=== PATIENT | male | born 1935 | race Caucasian/White ===

== ENCOUNTER 2016-11-04 07:52 | Day surgery (SDC) | payer MEDICARE ==
[2016-11-02 12:34] VITALS: BMI 25.7
[~2016-11-04 07:52] MED LIST: LACTATED RINGERS 1,000 ML IV SCH; LIDOCAINE 1% 20 ML VIAL (10MG/ML) FOR IV START INTRADERMA PRN
[2016-11-04 08:37] VITALS: RESP 16; TEMP 98
[2016-11-04] MEDS ORDERED: PROPOFOL 10 MG/ML 20 ML VIAL IV ONE (08:42)
[2016-11-04] MEDS ORDERED: LIDOCAINE 1% INJ 10MG/ML (20 ML MDV) ONE (08:42)
--- NOTE | 2016-11-04 09:05 | P.PCN ---
Date of Procedure: 11/04/16 Procedure(s) Performed: Brief history: Patient is a pleasant 81-year-old white male, scheduled for an elective upper endoscopy as well as colonoscopy as a part of evaluation of abdominal pain, intermittent nausea and vomiting and change in bowel habits. He also has prior history of colon polyps. Procedure performed: Esophagogastroduodenoscopy with biopsy Colonoscopy with biopsy Preoperative diagnosis: Abdominal pain, intermittent nausea and vomiting Change in bowel habits Anesthesia: MAC Procedure: After informed consent was obtained from the patient was brought into the endoscopy unit and IV sedation was administered by anesthesia under continuous monitoring. Initially upper endoscopy was done. The Olympus GF 160 video endoscope was inserted inserted into the mouth and esophagus intubated without any difficulty and was gradually advanced into the stomach and duodenum and carefully examined. The bulb and second part of the duodenum showed scattered erosions consistent with duodenitis and biopsies were done from this area. The scope was then withdrawn into the stomach adequately insufflated with air and upon careful examination the antrum appeared normal. The body, cardia and fundus had diffuse gastritis and biopsies were done from this area. The scope was then withdrawn into the esophagus. The GE junction was located at 40 cm to the incisors. small hiatal hernia noted. It appeared regular with with superficial erosions consistent with LA grade B reflux esophagitis.st of the esophagus appeared normal. Patient tolerated the procedure well. At this time the patient continued to remain sedation. Initial digital rectal examination was normal. Olympus CF 160 video colonoscope was then inserted into the rectum and gradually advanced to the cecum without any difficulty. Careful examination was performed as the scope was gradually being withdrawn. The prep was excellent. the cecum there was a polyp that was removed by biopsy. The Rest of thececum, ascending colon, transverse colon, descending colon, appeared normal. In the sigmoid colon there was a polyp that was removed biopsy and rectum there was a polyp that was removed by biopsy. The rest of the sigmoid colon and rectum appeared normal. also random biopsies were done from the ascending and descending colon to rule out microscopic/ collagenous colitis. Retroflexion was performed in the rectum and monitoring hemorrhoids noted. Patient tolerated the procedure well. Impression: 1.Upper endoscopy revealed duodenal erosions, diffuse gastritis and LA grade B reflux esophagitis. 2.Colonoscopy revealed 5 mm cecal polyp, 5 mm sigmoid polyp and a rectal polyp status post removal by biopsy. Recommendations: Findings of this examination were discussed with the patient as well as his family. He was advised to follow with the biopsy results. If the biopsy shows a tubular adenoma he can have a repeat colonoscopy in 5 years.
[2016-11-04 09:27] VITALS: BP 108/70; PULSE 54
== END 2016-11-04 10:05 | disposition home or self-care (01) ==
LOC: ORWHC2ENDO 07:52
PROVIDERS: ATTEND Internal Medicine Gastroenterology
DX: K21.9 Gastro-esophageal reflux disease without esophagitis (principal); K29.50 Unspecified chronic gastritis without bleeding; D12.0 Benign neoplasm of cecum; K62.1 Rectal polyp; K63.5 Polyp of colon; N42.9 Disorder of prostate, unspecified; N28.9 Disorder of kidney and ureter, unspecified; M06.9 Rheumatoid arthritis, unspecified; Z86.73 Personal history of transient ischemic attack (TIA), and cerebral infarction without residual deficits; Z79.899 Other long term (current) drug therapy; Z88.8 Allergy status to other drugs, medicaments and biological substances
CPT/HCPCS: 88305; 88342; 45380; 43239; J2001; J2704

== ENCOUNTER 2017-10-01 03:33 | Emergency (ER) | payer MEDICARE ==
[2017-10-01] MEDS ORDERED: RX INFO: IV CONTRAST WAS GIVEN 1 EACH MISC MISCELLANE PRN (04:16)
--- NOTE | 2017-10-01 04:21 | ED ---
Fall HPI - General Chief Complaint: Fall Stated Complaint: Abdominal Pain/Fall Time Seen by Provider: 10/01/17 03:52 Source: patient Mode of arrival: ambulatory - History of Present Illness Initial Comments: This patient is an 82-year-old man who presents to be evaluated after he had a fall. The patient states that around 11:30 PM he was returning to bed after having use the bathroom, and he lost his balance and fell forward landing on his anterior abdominal wall and his chest. He was having some pain states that he thought he would try to manage at home. He did take an ibuprofen but as the pain continued he decided to be seen here for evaluation. The patient did not have head trauma or any loss of consciousness. He is denying chest pain, dyspnea or cough. No vomiting or diarrhea. No change in urination. He indicates the pain is across the upper abdomen and epigastrium. He describes it as an aching pain, constant, moderate intensity. He has not had much relief with the ibuprofen. No associated symptoms. MD Complaint: fall Onset/Timin -: hour(s) Fall From: standing When Fall Occurred: 4-6 hours [employer] Fall Witnessed: yes, by family Place Fall Occurred: home Loss of Consciousness: none Prolonged Down Time?: no Symptoms Prior to Fall: none Severity: severe Quality: aching Associated Symptoms: abdominal pain - Related Data Home Medications Medication Instructions Recorded Confirmed Acetaminophen Tab [Tylenol Tab] 500 mg PO HS 01/29/15 10/01/17 Cholecalciferol [Vitamin D3] 400 unit PO DAILY 01/29/15 10/01/17 Glucosamine-Chondroitin Triple 1 tab PO DAILY 01/29/15 10/01/17 Strength Omeprazole [PriLOSEC] 20 mg PO AC-BRKFST 01/29/15 10/01/17 Silodosin [Rapaflo] 8 mg PO HS 01/29/15 10/01/17 Spironolactone [Aldactone] 25 mg PO DAILY 01/30/15 10/01/17 Furosemide [Lasix] 20 mg PO DAILY 09/30/15 10/01/17 Previous Rx's Medication Instructions Recorded Ondansetron Odt [Zofran ODT] 4 mg PO Q8HR PRN #10 tab 10/01/17 Allergies Allergy/AdvReac Type Severity Reaction Status Date / Time allopurinol Allergy RED RASH Verified 11/04/16 08:29 TO BLE Review of Systems ROS Statement: Those systems with pertinent positive or pertinent negative responses have been documented in the HPI. ROS Other: All systems not noted in ROS Statement are negative. Constitutional: Denies: fever, weakness Eyes: Denies: vision change Respiratory: Denies: cough, dyspnea Cardiovascular: Denies: chest pain, palpitations, edema, syncope Gastrointestinal: Reports: abdominal pain. 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, TINNITUS History of Any Multi-Drug Resistant Organisms: None Reported Past Surgical History: Cholecystectomy, Orthopedic Surgery Additional Past Surgical History / Comment(s): LTRI & CTR RT WRIST, ARTHROSCOPIC ROMA KNEES, RT TOE SURGERY, REMOVAL OF CANCER RT SIDE OF NOSE, EGD, COLONOSCOPY; PAIN PROCEDURES Past Anesthesia/Blood Transfusion Reactions: No Reported Reaction Past Psychological History: No Psychological Hx Reported Smoking Status: Never smoker - Past Family History Mother Family Medical History: CVA/TIA, Hyperlipidemia Additional Family Medical History / Comment(s): HEART PROBLEMS- FROM A STROKE General Exam Limitations: no limitations General appearance: alert, in no apparent distress Head exam: Present: atraumatic, normocephalic Eye exam: Present: normal appearance. Absent: scleral icterus, conjunctival injection Respiratory exam: Present: normal lung sounds bilaterally. Absent: respiratory distress, wheezes, rales, rhonchi, stridor, chest wall tenderness Cardiovascular Exam: Present: regular rate, normal rhythm, normal heart sounds. Absent: systolic murmur, diastolic murmur, rubs, gallop GI/Abdominal exam: Present: soft, tenderness. Absent: distended, guarding, rebound, rigid, organomegaly, mass, pulsatile mass Extremities exam: Present: normal inspection, normal capillary refill. Absent: pedal edema, calf tenderness Back exam: Present: normal inspection. Absent: CVA tenderness (R), CVA tenderness (L), vertebral tenderness Neurological exam: Present: alert Skin exam: Present: warm, dry, intact, normal color. Absent: rash Course Vital Signs 10/01/17 10/01/17 10/01/17 03:43 05:13 05:53 Temperature 98.0 F 97.9 F Pulse Rate 81 69 Respiratory 20 15 Rate Blood Pressure 149/67 137/71 O2 Sat by Pulse 99 97 Oximetry Medical Decision Making - Lab Data Result diagrams: 10/01/17 04:20 10/01/17 04:20 Lab Results 10/01/17 10/01/17 10/01/17 Range/Units 04:20 04:20 04:20 WBC 7.2 (3.8-10.6) k/uL RBC 4.23 L (4.30-5.90) m/uL Hgb 13.4 (13.0-17.5) gm/dL Hct 38.3 L (39.0-53.0) % MCV 90.4 (80.0-100.0) fL MCH 31.6 (25.0-35.0) pg MCHC 34.9 (31.0-37.0) g/dL RDW 12.1 (11.5-15.5) % Plt Count 170 (150-450) k/uL Neutrophils % 83 % Lymphocytes % 11 % Monocytes % 5 % Eosinophils % 0 % Basophils % 0 % Neutrophils # 6.0 (1.3-7.7) k/uL Lymphocytes # 0.8 L (1.0-4.8) k/uL Monocytes # 0.4 (0-1.0) k/uL Eosinophils # 0.0 (0-0.7) k/uL Basophils # 0.0 (0-0.2) k/uL Sodium 141 (137-145) mmol/L Potassium 3.9 (3.5-5.1) mmol/L Chloride 104 (98-107) mmol/L Carbon Dioxide 22 (22-30) mmol/L Anion Gap 15 mmol/L BUN 34 H (9-20) mg/dL Creatinine 2.00 H (0.66-1.25) mg/dL Est GFR (CKD-EPI)AfAm 35 (>60 ml/min/1.73 sqM) Est GFR (CKD-EPI)NonAf 30 (>60 ml/min/1.73 sqM) Glucose 108 H (74-99) mg/dL Calcium 10.3 H (8.4-10.2) mg/dL Total Bilirubin 0.6 (0.2-1.3) mg/dL AST 30 (17-59) U/L ALT 30 (21-72) U/L Alkaline Phosphatase 92 (38-126) U/L Troponin I (0.000-0.034) ng/mL Total Protein 7.6 (6.3-8.2) g/dL Albumin 4.6 (3.5-5.0) g/dL Amylase 91 (30-110) U/L Lipase 177 (23-300) U/L Urine Color Light Yellow Urine Appearance Clear (Clear) Urine pH 8.0 (5.0-8.0) Ur Specific [place] 1.012 (1.001-1.035) Urine Protein Negative (Negative) Urine Glucose (UA) Negative (Negative) Urine Ketones Negative (Negative) Urine Blood Negative (Negative) Urine Nitrite Negative (Negative) Urine Bilirubin Negative (Negative) Urine Urobilinogen <2.0 (<2.0) mg/dL Ur Leukocyte Esterase Negative (Negative) 10/01/17 Range/Units 04:20 WBC (3.8-10.6) k/uL RBC (4.30-5.90) m/uL Hgb (13.0-17.5) gm/dL Hct (39.0-53.0) % MCV (80.0-100.0) fL MCH (25.0-35.0) pg MCHC (31.0-37.0) g/dL RDW (11.5-15.5) % Plt Count (150-450) k/uL Neutrophils % % Lymphocytes % % Monocytes % % Eosinophils % % Basophils % % Neutrophils # (1.3-7.7) k/uL Lymphocytes # (1.0-4.8) k/uL Monocytes # (0-1.0) k/uL Eosinophils # (0-0.7) k/uL Basophils # (0-0.2) k/uL Sodium (137-145) mmol/L Potassium (3.5-5.1) mmol/L Chloride (98-107) mmol/L Carbon Dioxide (22-30) mmol/L Anion Gap mmol/L BUN (9-20) mg/dL Creatinine (0.66-1.25) mg/dL Est GFR (CKD-EPI)AfAm (>60 ml/min/1.73 sqM) Est GFR (CKD-EPI)NonAf (>60 ml/min/1.73 sqM) Glucose (74-99) mg/dL Calcium (8.4-10.2) mg/dL Total Bilirubin (0.2-1.3) mg/dL AST (17-59) U/L ALT (21-72) U/L Alkaline Phosphatase (38-126) U/L Troponin I <0.012 (0.000-0.034) ng/mL Total Protein (6.3-8.2) g/dL Albumin (3.5-5.0) g/dL Amylase (30-110) U/L Lipase (23-300) U/L Urine Color Urine Appearance (Clear) Urine pH (5.0-8.0) Ur Specific [place] (1.001-1.035) Urine Protein (Negative) Urine Glucose (UA) (Negative) Urine Ketones (Negative) Urine Blood (Negative) Urine Nitrite (Negative) Urine Bilirubin (Negative) Urine Urobilinogen (<2.0) mg/dL Ur Leukocyte Esterase (Negative) - EKG Data -: EKG Interpreted by De EKG shows normal: sinus rhythm, axis (Left axis deviation), intervals (IA interval 238 ms, consistent with a first-degree AV block. QRS duration 160 ms, consistent with left bundle branch block. QTC 502 ms, normal), QRS complexes ( Left bundle-branch block) Rate: normal (75 bpm) Disposition Clinical Impression: Fall Disposition: HOME SELF-CARE Condition: Good Instructions: Fall Prevention for Older Adults (ED) Prescriptions: Ondansetron Odt [Zofran ODT] 4 mg PO Q8HR PRN #10 tab PRN Reason: Nausea Referrals: Silke Calle MD [Primary Care Provider] - 1-2 days
[2017-10-01 04:30] LABS: Appearance,Urine Clear (Clear); Bilirubin,Urine Negative (Negative); Blood,Urine Negative (Negative); Color,Urine Light Yellow; Glucose,Urine (UA) Negative (Negative); Ketones,Urine Negative (Negative); Leukocyte Esterase,Urine Negative (Negative); Nitrite,Urine Negative (Negative); Protein,Urine Negative (Negative); Specific Gravity,Urine 1.012 (1.001-1.035); Urobilinogen,Urine <2.0 mg/dL (<2.0)
[2017-10-01 04:32] LABS: Basophils % (A) 0 %; Eosinophils % (A) 0 %; HCT 38.3 % (39.0-53.0); HGB 13.4 gm/dL (13.0-17.5); Lymphocytes # (A) 0.8 k/uL (1.0-4.8); Lymphocytes % (A) 11 %; MCH 31.6 pg (25.0-35.0); MCHC 34.9 g/dL (31.0-37.0); MCV 90.4 fL (80.0-100.0); Mean Platelet Volume 6.8; Monocytes # (A) 0.4 k/uL (0-1.0); Monocytes % (A) 5 %; Neutrophils % (A) 83 %; Platelet Count 170 k/uL (150-450); RBC 4.23 m/uL (4.30-5.90); RDW 12.1 % (11.5-15.5); WBC 7.2 k/uL (3.8-10.6)
[2017-10-01 04:47] LABS: Albumin 4.6 g/dL (3.5-5.0); Calcium 10.3 mg/dL (8.4-10.2); Potassium 3.9 mmol/L (3.5-5.1); Total Bilirubin 0.6 mg/dL (0.2-1.3); Total Protein 7.6 g/dL (6.3-8.2)
--- NOTE | 2017-10-01 04:53 | XR ---
EXAM: XR Abdomen 2 Views With XR Chest CLINICAL HISTORY: Pain TECHNIQUE: Frontal view of the chest, frontal view of the abdomen/pelvis and upright or decubitus view of the abdomen. COMPARISON: No relevant prior studies available. FINDINGS: Lungs: Unremarkable. No consolidation. Pleural space: Unremarkable. No pneumothorax. Heart: Unremarkable. No cardiomegaly. Mediastinum: Unremarkable. Intraperitoneal space: No free air. Gastrointestinal tract: Unremarkable. No dilation. Organs: Evidence of prior cholecystectomy. Calcifications within the pelvis likely phleboliths. Bones/joints: Degenerative changes of the thoracal lumbar spine. IMPRESSION: No acute findings.
[2017-10-01 05:15] VITALS: BP 137/71; PULSE 69; RESP 15
[2017-10-01] MEDS ORDERED: HYDROcodone/APAP 5-325MG 1 EACH TAB PO STA (05:37)
[2017-10-01 05:55] VITALS: TEMP 97.9
== END 2017-10-01 05:57 | disposition home or self-care (01) ==
LOC: EC 03:33
DX: R10.13 Epigastric pain (principal); K21.9 Gastro-esophageal reflux disease without esophagitis; M19.90 Unspecified osteoarthritis, unspecified site; N40.0 Benign prostatic hyperplasia without lower urinary tract symptoms; M06.9 Rheumatoid arthritis, unspecified; Z86.73 Personal history of transient ischemic attack (TIA), and cerebral infarction without residual deficits; Z85.820 Personal history of malignant melanoma of skin; Z79.899 Other long term (current) drug therapy; Z88.8 Allergy status to other drugs, medicaments and biological substances; W01.0XXA Fall on same level from slipping, tripping and stumbling without subsequent striking against object, initial encounter; Y92.009 Unspecified place in unspecified non-institutional (private) residence as the place of occurrence of the external cause
CPT/HCPCS: 36415; 74022; 80053; 81003; 82150; 83690; 84484; 85025; 93005; 99284

== ENCOUNTER 2017-10-05 19:54 | Inpatient (IN) | payer MEDICARE ==
[2017-10-05] MEDS ORDERED: SODIUM CHLORIDE 0.9% 1,000 ML IV STA (20:24)
[2017-10-05] MEDS ORDERED: SODIUM CHLORIDE 0.9% 500 ML IV STA (20:24)
--- NOTE | 2017-10-05 20:28 | ED ---
General Adult HPI - General Chief complaint: Fever Stated complaint: Fever Time Seen by Provider: 10/05/17 20:06 Source: patient, family, RN notes reviewed Mode of arrival: wheelchair Limitations: no limitations - History of Present Illness Initial comments: 82-year-old male presenting with fever and multiple falls. Patient is coming by his who gives the majority history. Over the past several days he has had fever up to 103. Patient is also had some intermittent confusion. He complains of runny nose, no sore throat, no cough. No chest pain. Patient has had some mild abdominal pain and nausea. Denies any diarrhea. Denies rash. Denies dysuria. Patient did fall and hit his head yesterday and has been complaining of a mild headache and neck pain since that time. According to his he has had multiple falls over the past week. No known sick contacts. Past medical history of hypertension and chronic kidney disease. Patient is given a dose of broad-spectrum antibiotics in the emergency department for concern of bacteremia. Blood culture and urine culture pending - Related Data Home Medications Medication Instructions Recorded Confirmed Glucosamine-Chondroitin Triple 1 tab PO DAILY 01/29/15 10/05/17 Strength Silodosin [Rapaflo] 8 mg PO HS 01/29/15 10/05/17 Spironolactone [Aldactone] 25 mg PO DAILY 01/30/15 10/05/17 Furosemide [Lasix] 20 mg PO DAILY 09/30/15 10/05/17 Calcium Lactate 84 mg PO DAILY 10/05/17 10/05/17 Donepezil [Aricept] 10 mg PO HS 10/05/17 10/05/17 Vitamin E 1,000 unit PO DAILY 10/05/17 10/05/17 amLODIPine [Norvasc] 10 mg PO DAILY 10/05/17 10/05/17 Previous Rx's Medication Instructions Recorded Ondansetron Odt [Zofran ODT] 4 mg PO Q8HR PRN #10 tab 10/01/17 Allergies Allergy/AdvReac Type Severity Reaction Status Date / Time allopurinol Allergy RED RASH Verified 10/05/17 20:39 TO BLE Review of Systems ROS Statement: Those systems with pertinent positive or pertinent negative responses have been documented in the HPI. ROS Other: All systems not noted in ROS Statement are negative. 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, TINNITUS History of Any Multi-Drug Resistant Organisms: None Reported Past Surgical History: Cholecystectomy, Orthopedic Surgery Additional Past Surgical History / Comment(s): LTRI & CTR RT WRIST, ARTHROSCOPIC ROMA KNEES, RT TOE SURGERY, REMOVAL OF CANCER RT SIDE OF NOSE, EGD, COLONOSCOPY; PAIN PROCEDURES Past Anesthesia/Blood Transfusion Reactions: No Reported Reaction Past Psychological History: No Psychological Hx Reported Smoking Status: Never smoker Past Alcohol Use History: None Reported Past Drug Use History: None Reported - Past Family History Mother Family Medical History: CVA/TIA, Hyperlipidemia Additional Family Medical History / Comment(s): HEART PROBLEMS- FROM A STROKE General Exam Limitations: no limitations General appearance: alert, in no apparent distress Head exam: Present: atraumatic, normocephalic Eye exam: Present: normal appearance, PERRL, EOMI ENT exam: Present: normal exam Neck exam: Present: normal inspection, tenderness. Absent: meningismus Respiratory exam: Present: normal lung sounds bilaterally. Absent: respiratory distress, wheezes Cardiovascular Exam: Present: regular rate, normal rhythm GI/Abdominal exam: Present: soft. Absent: distended, tenderness, guarding, rebound Extremities exam: Present: normal inspection, normal capillary refill. Absent: pedal edema Neurological exam: Present: alert, oriented X3, CN II-XII intact. Absent: motor sensory deficit Psychiatric exam: Present: normal affect, normal mood Skin exam: Present: warm, dry, intact. Absent: cyanosis, diaphoretic Course Vital Signs 10/05/17 10/05/17 10/05/17 19:58 20:14 21:02 Temperature 99.2 F Pulse Rate 74 79 64 Respiratory 18 18 18 Rate Blood Pressure 121/58 137/74 125/70 O2 Sat by Pulse 97 97 97 Oximetry 10/05/17 22:29 Temperature 97.8 F Pulse Rate 70 Respiratory 18 Rate Blood Pressure 139/77 O2 Sat by Pulse 97 Oximetry EKG Findings - EKG Comments: EKG Findings:: EKG shows sinus rhythm with first-degree AV block, left axis deviation, left bundle branch block, no ST segment elevation, EKG is unchanged compared to EKG from 5 days previous. Medical Decision Making - Medical Decision Making 82-year-old male presenting with fever, multiple falls, and some confusion. Head CT is obtained, is negative for intracranial hemorrhage or mass effect, no acute findings. Chest x-ray negative for focal pneumonia or pulmonary edema. Patient did have some hip pain status post fall, this was negative for fracture dislocation. Patient's temperature at home was measured at 103, he's been afebrile the emergency department. White blood cell count is 5.7, hemoglobin is 11.7 which is a reduction from 5 days previously at 13.4. Platelets 137 from 170. Creatinine 2.2 from 2.0. Patient is given IV hydration. Urinalysis negative for signs of infection, influenza is negative. AST and ALT are both mildly elevated, these will be repeated in the morning. Patient will be admitted for multiple falls, fever concern for occult infection, and confusion. - Lab Data Result diagrams: 10/05/17 20:26 10/05/17 20:26 Lab Results 10/05/17 10/05/17 10/05/17 Range/Units 20:26 20:26 20:26 WBC 5.7 (3.8-10.6) k/uL RBC 3.70 L (4.30-5.90) m/uL Hgb 11.7 L (13.0-17.5) gm/dL Hct 33.8 L (39.0-53.0) % MCV 91.4 (80.0-100.0) fL MCH 31.6 (25.0-35.0) pg MCHC 34.5 (31.0-37.0) g/dL RDW 12.2 (11.5-15.5) % Plt Count 137 L (150-450) k/uL Neutrophils % 67 % Lymphocytes % 14 % Monocytes % 14 % Eosinophils % 1 % Basophils % 0 % Neutrophils # 3.8 (1.3-7.7) k/uL Lymphocytes # 0.8 L (1.0-4.8) k/uL Monocytes # 0.8 (0-1.0) k/uL Eosinophils # 0.1 (0-0.7) k/uL Basophils # 0.0 (0-0.2) k/uL Sodium 139 (137-145) mmol/L Potassium 4.2 (3.5-5.1) mmol/L Chloride 103 (98-107) mmol/L Carbon Dioxide 22 (22-30) mmol/L Anion Gap 14 mmol/L BUN 35 H (9-20) mg/dL Creatinine 2.20 H (0.66-1.25) mg/dL Est GFR (CKD-EPI)AfAm 31 (>60 ml/min/1.73 sqM) Est GFR (CKD-EPI)NonAf 27 (>60 ml/min/1.73 sqM) Glucose 114 H (74-99) mg/dL Plasma Lactic Acid [place] (0.7-2.0) mmol/L Calcium 9.6 (8.4-10.2) mg/dL Total Bilirubin 0.5 (0.2-1.3) mg/dL AST 78 H (17-59) U/L ALT 75 H (21-72) U/L Alkaline Phosphatase 108 (38-126) U/L Troponin I (0.000-0.034) ng/mL Total Protein 6.7 (6.3-8.2) g/dL Albumin 3.8 (3.5-5.0) g/dL Urine Color Urine Appearance (Clear) Urine pH (5.0-8.0) Ur Specific [place] (1.001-1.035) Urine Protein (Negative) Urine Glucose (UA) (Negative) Urine Ketones (Negative) Urine Blood (Negative) Urine Nitrite (Negative) Urine Bilirubin (Negative) Urine Urobilinogen (<2.0) mg/dL Ur Leukocyte Esterase (Negative) Influenza Type A RNA Not Detected (Not Detectd) Influenza Type B (PCR) Not Detected (Not Detectd) 10/05/17 10/05/17 10/05/17 Range/Units 20:26 20:26 20:40 WBC (3.8-10.6) k/uL RBC (4.30-5.90) m/uL Hgb (13.0-17.5) gm/dL Hct (39.0-53.0) % MCV (80.0-100.0) fL MCH (25.0-35.0) pg MCHC (31.0-37.0) g/dL RDW (11.5-15.5) % Plt Count (150-450) k/uL Neutrophils % % Lymphocytes % % Monocytes % % Eosinophils % % Basophils % % Neutrophils # (1.3-7.7) k/uL Lymphocytes # (1.0-4.8) k/uL Monocytes # (0-1.0) k/uL Eosinophils # (0-0.7) k/uL Basophils # (0-0.2) k/uL Sodium (137-145) mmol/L Potassium (3.5-5.1) mmol/L Chloride (98-107) mmol/L Carbon Dioxide (22-30) mmol/L Anion Gap mmol/L BUN (9-20) mg/dL Creatinine (0.66-1.25) mg/dL Est GFR (CKD-EPI)AfAm (>60 ml/min/1.73 sqM) Est GFR (CKD-EPI)NonAf (>60 ml/min/1.73 sqM) Glucose (74-99) mg/dL Plasma Lactic Acid [place] 0.7 (0.7-2.0) mmol/L Calcium (8.4-10.2) mg/dL Total Bilirubin (0.2-1.3) mg/dL AST (17-59) U/L ALT (21-72) U/L Alkaline Phosphatase (38-126) U/L Troponin I 0.014 (0.000-0.034) ng/mL Total Protein (6.3-8.2) g/dL Albumin (3.5-5.0) g/dL Urine Color Yellow Urine Appearance Clear (Clear) Urine pH 5.5 (5.0-8.0) Ur Specific [place] 1.013 (1.001-1.035) Urine Protein Trace H (Negative) Urine Glucose (UA) Negative (Negative) Urine Ketones Negative (Negative) Urine Blood Negative (Negative) Urine Nitrite Negative (Negative) Urine Bilirubin Negative (Negative) Urine Urobilinogen <2.0 (<2.0) mg/dL Ur Leukocyte Esterase Negative (Negative) Influenza Type A RNA (Not Detectd) Influenza Type B (PCR) (Not Detectd) Disposition Clinical Impression: Fever, Multiple falls Disposition: ADMITTED IP TO THIS [facility] Condition: Stable Referrals: Silke Calle MD [Primary Care Provider] - 1-2 days Decision to Admit Reason: Admit from EC Decision Date: 10/05/17 Decision Time: 22:57
[2017-10-05 20:40] LABS: Basophils % (A) 0 %; Eosinophils # (A) 0.1 k/uL (0-0.7); Eosinophils % (A) 1 %; HCT 33.8 % (39.0-53.0); HGB 11.7 gm/dL (13.0-17.5); Lymphocytes # (A) 0.8 k/uL (1.0-4.8); Lymphocytes % (A) 14 %; MCH 31.6 pg (25.0-35.0); MCHC 34.5 g/dL (31.0-37.0); MCV 91.4 fL (80.0-100.0); Mean Platelet Volume 7.2; Monocytes # (A) 0.8 k/uL (0-1.0); Monocytes % (A) 14 %; Neutrophils # (A) 3.8 k/uL (1.3-7.7); Neutrophils % (A) 67 %; Platelet Count 137 k/uL (150-450); RDW 12.2 % (11.5-15.5); WBC 5.7 k/uL (3.8-10.6)
[2017-10-05 20:49] LABS: Appearance,Urine Clear (Clear); Bilirubin,Urine Negative (Negative); Blood,Urine Negative (Negative); Color,Urine Yellow; Glucose,Urine (UA) Negative (Negative); Ketones,Urine Negative (Negative); Leukocyte Esterase,Urine Negative (Negative); Nitrite,Urine Negative (Negative); PH, Urine 5.5 (5.0-8.0); Protein,Urine Trace (Negative); Specific Gravity,Urine 1.013 (1.001-1.035); Urobilinogen,Urine <2.0 mg/dL (<2.0)
[2017-10-05 20:50] LABS: Albumin 3.8 g/dL (3.5-5.0); Calcium 9.6 mg/dL (8.4-10.2); Potassium 4.2 mmol/L (3.5-5.1); Total Bilirubin 0.5 mg/dL (0.2-1.3); Total Protein 6.7 g/dL (6.3-8.2)
--- NOTE | 2017-10-05 21:54 | CT ---
EXAMINATION TYPE: CT brain lisa de leon DATE OF EXAM: 10/05/2017 COMPARISON: NONE HISTORY: Fever and falls. CT DLP: 1391.2 mGycm Automated exposure control for dose reduction was used. TECHNIQUE: CT scan of the head and cervical spine are performed without contrast. FINDINGS: There is no acute intracranial hemorrhage, mass effect, or midline shift identified. The ventricles and sulci are within normal limits in size. The globes are intact and the visualized sin uses are clear. Cervical spine is visualized in its entirety from C1 through upper thoracic levels and demonstrates s atisfactory alignment without evidence of acute fracture or dislocation. Prevertebral soft tissue ap pears within normal limits. The C1-C2 articulation is unremarkable. IMPRESSION: 1. There is no acute fracture or dislocation evident in the cervical spine. 2. No acute intracranial hemorrhage, mass effect, or midline shift is seen.
--- NOTE | 2017-10-05 21:57 | XR ---
EXAMINATION: XR chest 2V DATE AND TIME: 10/05/2017 9:42 PM ORDERING PROVIDER: Rolando Andrews MD CLINICAL INDICATION: fever TECHNIQUE: AP and lateral COMPARISON: 12/16/2012 DESCRIPTION: The lungs are clear. The pleural spaces are negative. The cardiac silhouette is not mildly enlarged with a left ventricular configuration, and there is tor tuosity and ectasia of the thoracic aorta. These changes appear to have been present on the prior joanne dy. The skeletal structures are intact without focal findings. The soft tissues are unremarkable. IMPRESSION: NO ACUTE PROCESS.
--- NOTE | 2017-10-05 21:59 | XR ---
PROCEDURE: XR Hip Complete LT, 2 views DATE AND TIME: 10/05/2017 9:50 PM REFERRING PHYSICIAN: Rolando Andrews MD CLINICAL INDICATION: PHH, Pain TECHNIQUE: Department protocol. COMPARISON: None FINDINGS: There is no fracture or malalignment. The soft tissues are unremarkable. IMPRESSION: NO ACUTE PROCESS.
[2017-10-05] MEDS ORDERED: cefTRIAXone IN SWFI 1,000 MG/10 ML SYRINGE IVP STA (22:51)
[2017-10-05] MEDS ORDERED: VANCOMYCIN IV PER PHARMACY 1 EACH MISC MISCELLANE PRN (22:51)
[2017-10-05] MEDS ORDERED: NALOXONE 0.4 MG/ML 1 ML VIAL IV PRN (22:58)
[2017-10-05] MEDS ORDERED: ONDANSETRON 4 MG/2 ML VIAL IVP PRN (22:58)
[2017-10-05] MEDS ORDERED: VANCOMYCIN 1,500 MG in SODIUM CHLORIDE 0.9% 250 ML IVPB SCH (23:15)
--- NOTE | 2017-10-05 23:37 | P.HPIM ---
History of Present Illness H&P Date: 10/05/17 Chief Complaint: Fevers 82-year-old male with history of TIA, CKD3. Patient presented to the ED accompanied by his family today due to reports of spiking fevers 102 Fahrenheit last time he received Tylenol was 5 PM since then no more spikes of fever there is no fevers recorded in the ED. Patient denies any headache neck stiffness, denies any runny nose denies any sneezing denies any coughing denies any upper respiratory infection symptoms, denies any chest pain or trouble breathing, denies any urinary changes denies any abdominal pain. She denies any GI bleeding. Family reports that he gets attacks of confusion recently he had an attack last night where he was getting ready to sleep in bed with his noticed that he started talking about firecrackers completely random and did not make any sense, the other time that he gets confused with few days ago when he did not make any sense while talking and he was seeming confused about his whereabouts. He is also been falling at home and the family is not sure whether it's due to [id number] dizziness or falling due to legs giving out. However the patient denies any changes in his speech denies any focal neurologic deficits any numbness tingling or weakness. Family reported the patient is compliant with his medications, there has been no changes in his medications except for Aricept that he started yesterday and took only one dose so far Review of Systems Constitutional: Patient reports fever, reports chills, denies night sweating, denies significant weight changes Eyes: Patient denies visual changes, denies eye pain ENT: Patient denies ear pain, denies rhinorrhea, denies sore throat Cardiovascular: Patient denies chest pain, denies exertional dyspnea, denies peripheral leg edema, denies orthopnea, denies paroxysmal nocturnal dyspnea Respiratory:Patient denies cough, denies wheezing, denies shortness of breath Gastrointestinal: Patient reports diarrhea 4 days ago, denies constipation, denies nausea, denies vomiting, denies abdominal pain Genitourinary: Patient denies dysuria, denies hematuria, denies changes in urinary habits, denies genital lesions Musculoskeletal: Patient denies muscle pain, denies joint pain Psychiatric: Patient denies changes in mood or memory, denies suicidal ideation, denies anxiety Endocrine: Patient denies heat intolerance, denies cold intolerance, denies excessive thirst, denies polyuria Neurological: Patient denies focal neurologic deficits, denies weakness, denies numbness, denies tingling, reports falling, reports short periods of confusion Hem/Lymphatic: Patient denies bleeding tendency, denies bruising, denies swollen lymph glands Allergic/Immun: Patient denies recent allergic reactions Skin: Patient denies rashes, denies pruritis, denies ulcers 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, TINNITUS History of Any Multi-Drug Resistant Organisms: None Reported Past Surgical History: Cholecystectomy, Orthopedic Surgery Additional Past Surgical History / Comment(s): LTRI & CTR RT WRIST, ARTHROSCOPIC ROMA KNEES, RT TOE SURGERY, REMOVAL OF CANCER RT SIDE OF NOSE, EGD, COLONOSCOPY; PAIN PROCEDURES Past Anesthesia/Blood Transfusion Reactions: No Reported Reaction Past Psychological History: No Psychological Hx Reported Smoking Status: Never smoker Past Alcohol Use History: None Reported Past Drug Use History: None Reported - Past Family History Mother Family Medical History: CVA/TIA, Hyperlipidemia Additional Family Medical History / Comment(s): HEART PROBLEMS- FROM A STROKE Medications and Allergies Home Medications and Allergies Comment(s): Reviewed Home Medications Medication Instructions Recorded Confirmed Type Glucosamine-Chondroitin Triple 1 tab PO DAILY 01/29/15 10/05/17 History Strength Silodosin [Rapaflo] 8 mg PO HS 01/29/15 10/05/17 History Spironolactone [Aldactone] 25 mg PO DAILY 01/30/15 10/05/17 History Furosemide [Lasix] 20 mg PO DAILY 09/30/15 10/05/17 History Ondansetron Odt [Zofran ODT] 4 mg PO Q8HR PRN #10 tab 10/01/17 10/05/17 Rx Calcium Lactate 84 mg PO DAILY 10/05/17 10/05/17 History Donepezil [Aricept] 10 mg PO HS 10/05/17 10/05/17 History Vitamin E 1,000 unit PO DAILY 10/05/17 10/05/17 History amLODIPine [Norvasc] 10 mg PO DAILY 10/05/17 10/05/17 History Allergies Allergy/AdvReac Type Severity Reaction Status Date / Time allopurinol Allergy RED RASH Verified 10/05/17 20:39 TO BLE Physical Exam Vitals: Vital Signs Temp Pulse Resp BP Pulse Ox 10/05/17 22:29 97.8 F 70 18 139/77 97 10/05/17 21:02 64 18 125/70 97 10/05/17 20:14 79 18 137/74 97 10/05/17 19:58 99.2 F 74 18 121/58 97 Intake and Output 10/05/17 10/05/17 10/06/17 14:59 22:59 06:59 Other: Weight 84.822 kg Constitutional: No acute distress, conversant, pleasant Eyes: Anicteric sclerae, moist conjunctiva, no lid-lag Pupils equal round reactive to light ENMT: NC/AT Oropharynx clear, no erythema, exudates Neck: Supple, FROM, no masses, or JVD No carotid bruits No thyromegaly Lungs: Clear to auscultation Clear to percussion Normal respiratory effort, no accessory muscle use Cardiovascular: Heart regular in rate and rhythm, No murmurs, gallops, or rubs No peripheral edema Abdominal: Soft Nontender, no guarding, rebound or rigidity Abdomen moving with respiration Normoactive bowel sounds No hepatomegaly, No splenomegaly No palpable mass No abdominal wall hernia noted Skin: Normal temperature, tone, texture, turgor No induration No subcutaneous nodules No rash, lesions No ulcers Extremities: No digital cyanosis No clubbing Pedal pulses intact and symmetrical Radial pulses intact and symmetrical No calf tenderness Psychiatric: Alert and oriented to person, place and time Appropriate affect fair judgment Neuro Muscles Strength 5/5 in all 4 extremities Sensation to light touch grossly present throughout Cranial nerves II-XII grossly intact No focal sensory deficits Cerebellar exam performed finger-nose intact heel lozada intact no dysdiadochokinesis No neck stiffness Lymphatics: no palpable cervical or supraclavicular , or inguinal lymph nodes Results CBC & Chem 7: 10/05/17 20:26 10/05/17 20:26 Labs: Abnormal Lab Results - Last 24 Hours (Table) 03/29/18 03/29/18 03/29/18 Range/Units 20:26 20:26 20:40 RBC 3.70 L (4.30-5.90) m/uL Hgb 11.7 L (13.0-17.5) gm/dL Hct 33.8 L (39.0-53.0) % Plt Count 137 L (150-450) k/uL Lymphocytes # 0.8 L (1.0-4.8) k/uL BUN 35 H (9-20) mg/dL Creatinine 2.20 H (0.66-1.25) mg/dL Glucose 114 H (74-99) mg/dL AST 78 H (17-59) U/L ALT 75 H (21-72) U/L Urine Protein Trace H (Negative) Assessment and Plan Assessment: 82-year-old male with history of TIA and CK D stage III presented to the emergency department due to spiking fevers at home, denies any symptoms suggestive of any focus of infection. Patient was also reported attacks of short lived. Periods's of confusion along with frequent falling recently. Patient admitted for further monitoring and workup will consist of ruling out any underlying infectious process, and ruling out any underlying stroke or TIA. Computed tomography scan of the head in the emergency department was unremarkable,, chest x-ray unremarkable, hip x-rays unremarkable. EKG showed left bundle branch block and first-degree AV block. Labs suggested slight worsening of his chronic kidney disease, slight worsening of his chronic anemia. Blood cultures were taken in the ED and patient received 1 dose of Rocephin and Vanco due to fevers Plan: #Possible TIA due to patient reporting attacks of confusion and falls Stroke pathway workup Computed tomography scan of the head was negative Check MRI of the brain Check carotid ultrasound Check 2-D echo of the heart Check lipid profile Check A1c Check TSH Consult neurology #Fevers No clear focus of infection No leukocytosis Blood cultures taken Urine analysis taken Patient received 1 dose of antibiotic empiric coverage in the ED I will hold antibiotics, and await clinical progress and follow-up cultures Chest x-ray negative #Anemia of chronic disease Slight drop in hemoglobin from baseline Patient denies any evidence of active bleeding or any melena Continue to monitor hemoglobin #CK D3 Avoid nephrotoxic medications Monitor renal function Monitor urine output Rapaflo dose was adjusted suggested down to 4 mg #. BPH Rapaflo dose should be adjusted down to 4 mg due to advanced Ckd DVT prophylaxis Heparin subcu 3 times a day Per our discussion with the ED doctor Johnie, the workup above will be performed in addition to ruling out TTP Aricept discontinued Diuretics on hold PT evaluation due to falls Preformed a thorough record review from recent ER visit reviewed labs and workup at that time which is showing slight drop in his hemoglobin and platelets along with slight worsening of his CK D Surrogate decision-maker: patient's CODE STATUS:Full code DVT prophylaxis: Heparin sc Discussed with: Patient, ER, family , RN Anticipated discharge: 48-[address]: home A total of 60 minutes were spent on the care of this complex patient more than 50% of the time was spent in counseling and care coordination.
[2017-10-06 00:09] LABS: Reticulocyte % 1.1 % (0.5-2.0)
[2017-10-06 01:11] VITALS: BMI 25.3
[2017-10-06] MEDS: ACETAMINOPHEN TAB 325 MG TAB PO PRN ×2 (02:50→14:45)
[2017-10-06 08:33] LABS: Basophils % (A) 0 %; Eosinophils # (A) 0.1 k/uL (0-0.7); Eosinophils % (A) 1 %; HCT 35.4 % (39.0-53.0); HGB 11.6 gm/dL (13.0-17.5); Lymphocytes # (A) 1.1 k/uL (1.0-4.8); Lymphocytes % (A) 18 %; MCH 30.8 pg (25.0-35.0); MCHC 32.8 g/dL (31.0-37.0); MCV 93.8 fL (80.0-100.0); Monocytes # (A) 0.8 k/uL (0-1.0); Monocytes % (A) 13 %; Neutrophils # (A) 3.9 k/uL (1.3-7.7); Neutrophils % (A) 63 %; Platelet Count 155 k/uL (150-450); RBC 3.77 m/uL (4.30-5.90); RDW 12.2 % (11.5-15.5); WBC 6.2 k/uL (3.8-10.6)
[2017-10-06 08:50] LABS: Albumin 3.7 g/dL (3.5-5.0); Calcium 9.2 mg/dL (8.4-10.2); Magnesium 1.9 mg/dL (1.6-2.3); Potassium 4.1 mmol/L (3.5-5.1); Total Bilirubin 0.4 mg/dL (0.2-1.3); Total Protein 6.5 g/dL (6.3-8.2)
[2017-10-06] MEDS: ASPIRIN 81 MG PO SCH (09:20)
[2017-10-06] MEDS: TAMSULOSIN 0.4 MG CAP.ER.24H PO SCH (09:20)
[2017-10-06] MEDS: amLODIPine 10 MG TAB PO SCH (09:20)
--- NOTE | 2017-10-06 12:21 | ECHOF ---
Referral Reason:TIA MEASUREMENTS -------- HEIGHT: 182.9 cm WEIGHT: 84.8 kg BP: 134/69 RVIDd: 3.4 cm (< 3.3) IVSd: 1.2 cm (0.6 - 1.1) LVIDd: 5.0 cm (3.9 - 5.3) LVPWd: 1.3 cm (0.6 - 1.1) IVSs: 2.0 cm LVIDs: 3.3 cm LVPWs: 1.8 cm LA Diam: 3.8 cm (2.7 - 3.8) LAESV Index (A-L): 27.78 ml/m Ao Diam: 3.8 cm (2.0 - 3.7) AV Cusp: 2.0 cm (1.5 - 2.6) MV EXCURSION: 11.800 mm (> 18.000) MV EF SLOPE: 90 mm/s (70 - 150) EPSS: 0.9 cm MV E Raymundo: 0.63 m/s MV DecT: 170 ms MV A Raymundo: 1.00 m/s MV E/A Ratio: 0.63 RAP: 5.00 mmHg RVSP: 25.10 mmHg FINDINGS -------- Sinus rhythm. This was a technically good study. The left ventricular size is normal. There is mild concentric left ventricular hypertrophy. Overa ll left ventricular systolic function is low-normal with, an EF between 50 - 55 %. Apical anterior LV wall motion is hypokinetic. Apical lateral LV wall motion is hypokinetic. The right ventricle is mildly enlarged. Normal LA size by volume 22+/-6 ml/m2. The right atrium is normal in size. Aortic valve is trileaflet and is mildly thickened. Mild mitral annular calcification present. No mitral regurgitation. Mild tricuspid regurgitation present. Right ventricular systolic pressure is normal at < 35 mmHg. There is no pulmonic regurgitation present. The aortic root is dilated measuring 3.8cm. Normal inferior vena cava with normal inspiratory collapse consistent with estimated right atrial pre ssure of 5 mmHg. There is no pericardial effusion. CONCLUSIONS -------- 1. Sinus rhythm. 2. This was a technically good study. 3. The left ventricular size is normal. 4. There is mild concentric left ventricular hypertrophy. 5. Overall left ventricular systolic function is low-normal with, an EF between 50 - 55 %. 6. Apical anterior LV wall motion is hypokinetic. 7. Apical lateral LV wall motion is hypokinetic. 8. The right ventricle is mildly enlarged. 9. Normal LA size by volume 22+/-6 ml/m2. 10. The right atrium is normal in size. 11. Aortic valve is trileaflet and is mildly thickened. 12. Mild mitral annular calcification present. 13. No mitral regurgitation. 14. Mild tricuspid regurgitation present. 15. Right ventricular systolic pressure is normal at < 35 mmHg. 16. There is no pulmonic regurgitation present. 17. The aortic root is dilated measuring 3.8cm. 18. Normal inferior vena cava with normal inspiratory collapse consistent with estimated right atrial pressure of 5 mmHg. 19. There is no pericardial effusion. [employer]ERANS ADVISER: Kaylin Urbano RDCS
--- NOTE | 2017-10-06 12:36 | P.CNNES ---
History of Present Illness Consult date: 10/06/17 Reason for Consult: Patient admitted with frequent falls and TIA. History of Present Illness: This patient is a 82-year-old right-handed white male who is seen today for evaluation of altered mental status and possible TIAs. History was obtained by his who is at bedside. Apparently on Monday he had a fall at home and struck the front of his chest due to the impact of the fall. She did bring him to the hospital on Monday and he was evaluated to rule out rib fracture. All of his testing came back negative and he was discharged home. Apparently the next day he was at home and was walking towards the bathroom when he had a syncopal episode and passed out and fell again. It is unclear if he had any loss of consciousness. His mentions that he complained of poor vision in his left eye and then went down. is able to attend to him and he did appear to be having some symptoms of confusion. He did not make sense with some of his speech at the time. According to the his primary care physician had recently started him on Aricept a few days prior at 10 mg daily. Apparently he underwent testing and was felt to have evidence suggesting possibility of cognitive impairment and early dementia. His Aricept was placed on hold. Apparently prior to coming to the hospital the patient was spiking fevers at home as high as 102.0. He was given some Tylenol but the fevers persisted and this was a reason to bring him to the hospital for further evaluation last night. The patient underwent some some blood cultures which are pending at this time. He was given a dose of Rocephin and vancomycin. He is afebrile this morning. When questioned about his memory loss the states it has been gradual and she was not clear why the Aricept was started just a few days ago as he has not shown any major decline recently. His testing for early dementia was also quite in the normal range according to the . 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 He is scheduled to undergo an MRI of the brain this afternoon and we will await these results. Due to the recent falls and confusion the question of possible TIAs is a possibility. According to the he does have yearly carotid Doppler studies done by his finance attorney and these have all been within normal limits. He has been reluctant to use NSAIDs or aspirin due to history of renal failure in the past. He was given 1 baby aspirin in the ER yesterday. The patient states he does not expanse any headache or neck pain. He did not have any signs of meningeal irritation in the ER last night and still has no features of meningitis. As noted his temperature is back to normal today. We' re still awaiting the results of his blood cultures. The patient is now admitted and neurology has been consulted for further evaluation and recommendations. Review of Systems Constitutional: Denies chills, Denies fever Eyes: denies blurred vision, denies pain Ears, nose, mouth and throat: Denies headache, Denies sore throat Cardiovascular: Denies chest pain, Denies shortness of breath Respiratory: Denies cough Gastrointestinal: Denies abdominal pain, Denies diarrhea, Denies nausea, Denies vomiting Musculoskeletal: Denies myalgias Integumentary: Denies pruritus, Denies rash Neurological: Reports change in mentation, Reports confusion, Reports gait dysfunction, Reports loss of vision, Reports motor disturbance, Reports paresthesias, Reports syncope, Denies numbness, Denies weakness Psychiatric: Denies anxiety, Denies depression Endocrine: Denies fatigue, Denies weight change 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, TINNITUS History of Any Multi-Drug Resistant Organisms: None Reported Past Surgical History: Cholecystectomy, Orthopedic Surgery Additional Past Surgical History / Comment(s): LTRI & CTR RT WRIST, ARTHROSCOPIC ROMA KNEES, RT TOE SURGERY, REMOVAL OF CANCER RT SIDE OF NOSE, EGD, COLONOSCOPY; PAIN PROCEDURES Past Anesthesia/Blood Transfusion Reactions: No Reported Reaction Past Psychological History: No Psychological Hx Reported Smoking Status: Never smoker Past Alcohol Use History: None Reported Past Drug Use History: None Reported - Past Family History Mother Family Medical History: CVA/TIA, Hyperlipidemia Additional Family Medical History / Comment(s): HEART PROBLEMS- FROM A STROKE Medications and Allergies Home Medications Medication Instructions Recorded Confirmed Type Glucosamine-Chondroitin Triple 1 tab PO DAILY 01/29/15 10/05/17 History Strength Silodosin [Rapaflo] 8 mg PO HS 01/29/15 10/05/17 History Spironolactone [Aldactone] 25 mg PO DAILY 01/30/15 10/05/17 History Furosemide [Lasix] 20 mg PO DAILY 09/30/15 10/05/17 History Ondansetron Odt [Zofran ODT] 4 mg PO Q8HR PRN #10 tab 10/01/17 10/05/17 Rx Calcium Lactate 84 mg PO DAILY 10/05/17 10/05/17 History Donepezil [Aricept] 10 mg PO HS 10/05/17 10/05/17 History Vitamin E 1,000 unit PO DAILY 10/05/17 10/05/17 History amLODIPine [Norvasc] 10 mg PO DAILY 10/05/17 10/05/17 History Allergies Allergy/AdvReac Type Severity Reaction Status Date / Time allopurinol Allergy RED RASH Verified 10/05/17 20:39 TO BLE Physical Examination - Vital Signs Vital Signs: Vital Signs Temp Pulse Pulse Resp BP BP Pulse Ox 10/06/17 07:00 98.9 F 71 16 116/57 96 10/06/17 03:48 98.6 F 10/06/17 02:51 100 F H 10/06/17 00:41 98.3 F 95 18 134/69 96 10/06/17 00:09 98.7 F 80 18 135/77 97 10/06/17 00:00 18 10/05/17 22:29 97.8 F 70 18 139/77 97 10/05/17 21:02 64 18 125/70 97 10/05/17 20:14 79 18 137/74 97 10/05/17 19:58 99.2 F 74 18 121/58 97 Intake and Output 10/05/17 10/06/17 10/06/17 22:59 06:59 14:59 Other: Voiding Method Toilet # Voids 3 Weight 84.822 kg 84.822 kg - Constitutional General appearance: average body habitus, cooperative - EENT EENT: PERRL, mucous membranes moist - Respiratory Respiratory: lungs clear, normal breath sounds - Cardiovascular Cardiovascular: regular rate, normal S1, normal S2 Extremities: no peripheral edema bilaterally - Gastrointestinal Gastrointestinal: normoactive bowel sounds - Integumentary Integumentary: normal - Neurologic Cranial nerve examination: PERRL, EOMI, VFF, V1/V2/V3 grossly intact, face symmetric, intact shoulder shrug, intact gag reflex, intact corneal reflex, normal palatal elevation Speech examination: intact Sensorimotor examination: intact Motor examination - right side: 4/5: biceps, triceps, wrist flexion, wrist extension, conveyor belt installer, hip flexors, knee extensors, dorsiflexion, toe extension (EHL) , plantarflexion Motor examination - left side: 4/5: biceps, triceps, wrist flexion, wrist extension, conveyor belt installer, hip flexors, knee extensors, dorsiflexion, toe extension (EHL) , plantarflexion Detailed sensory examination: intact Reflex and gait examination: intact Reflexes: 1+: ankle, bicep, knee, tricep - Musculoskeletal Musculoskeletal: no pain - Psychiatric Psychiatric: mood/affect appropriate, cooperative Results - Laboratory Findings CBC and BMP: 10/06/17 07:54 10/06/17 07:54 Abnormal Lab Findings: Abnormal Labs 10/05/17 10/05/17 10/05/17 20:26 20:26 20:40 RBC 3.70 L Hgb 11.7 L Hct 33.8 L Plt Count 137 L Lymphocytes # 0.8 L BUN 35 H Creatinine 2.20 H Glucose 114 H AST 78 H ALT 75 H Urine Protein Trace H 10/06/17 10/06/17 07:54 07:54 RBC 3.77 L Hgb 11.6 L Hct 35.4 L Plt Count Lymphocytes # BUN 30 H Creatinine 1.79 H Glucose AST 89 H ALT 92 H Urine Protein Assessment and Plan (1) TIA (transient ischemic attack) Current Visit: Yes Status: Acute Code(s): G45.9 - TRANSIENT CEREBRAL ISCHEMIC ATTACK, UNSPECIFIED SNOMED Code(s): 988746091 (2) Acute encephalopathy Current Visit: Yes Status: Acute Code(s): G93.40 - ENCEPHALOPATHY, UNSPECIFIED SNOMED Code(s): 79535550 (3) Sepsis Current Visit: Yes Status: Acute Code(s): A41.9 - SEPSIS, UNSPECIFIED ORGANISM SNOMED Code(s): 89342066 (4) Multiple falls Current Visit: Yes Status: Acute Code(s): R29.6 - REPEATED FALLS SNOMED Code(s): 375942982 Plan: This patient is a 82-year-old male who was admitted hospital after having recent falls and altered mental status at home. His who is a retired nurse noted that he was having difficulty with his gait and ambulation. He had a fall and Monday at which time she didn't bring him to the hospital as there was concern for rib fracture. All of his x-rays were negative and he was discharged home. The next day he had a fall in which she lost balance and fell down without any trauma to his head or neck area. He was also noted to be spiking fevers at home as high as 102. For these reasons he was brought back to the emergency room last night for further evaluation. Subsequent admitted to the hospital. Patient also has a history of possible early dementia. His primary care physician and recently started him on Aricept 10 mg daily. This has since been discontinued. Given his falls he did undergo a computed tomography scan of the brain which failed to reveal any acute changes. CT of the cervical spine was negative for acute fracture or dislocation. We have recommended an MRI of the brain for further evaluation. He has had yearly carotid Doppler studies done by his finance attorney and these have been negative for any significant carotid artery stenosis. We will check him for a complete laboratory evaluation for acute stroke. According to the his cholesterol has been in a very good range for years. His clinical history suggests possibility of TIA versus stroke. He does not appear to have clear evidence of moderate to severe dementia at this time. We will await the results of his MRI and we'll give further recommendations. Case was discussed at length with the patient as well as his and daughter bedside. All their questions were answered. They're aware of his guarded condition. Time with Patient: Greater than 30
--- NOTE | 2017-10-06 13:35 | P.PN ---
Subjective Progress Note Date: 10/06/17 Patient is awake and alert, conversive responding appropriately to questions. and daughter at bedside. Patient febrile intermittently. Otherwise no acute events. Objective - Vital Signs Vital signs: Vital Signs Temp 98.9 F 10/06/17 07:00 Pulse 71 10/06/17 07:00 Resp 16 10/06/17 07:00 BP 116/57 10/06/17 07:00 Pulse Ox 96 10/06/17 07:00 Intake & Output 10/05/17 10/06/17 10/06/17 18:59 06:59 18:59 Weight 84.822 kg Other: Voiding Method Toilet # Voids 3 - Exam Constitutional: No acute distress, conversant, pleasant Eyes: Anicteric sclerae, moist conjunctiva, no lid-lag, PERRLA ENMT: NC/AT,Oropharynx clear, no erythema, exudates Neck:Supple, FROM, no masses, or JVD, No carotid bruits; No thyromegaly Lungs: Clear to auscultation, Clear to percussion, Normal respiratory effort, no accessory muscle use Cardiovascular: Heart regular in rate and rhythm, No murmurs, gallops, or rubs no peripheral edema Abdominal: Soft Nontender, nom distended, no guarding, no rebound or rigidity, Normoactive bowel sounds No hepatomegaly, No splenomegaly, No palpable mass No abdominal wall hernia noted Skin: Normal temperature, tone, texture, turgor, No induration No subcutaneous nodules, No rash, lesions, No ulcers Extremities:No digital cyanosis No clubbing, Pedal pulses intact and symmetrical Radial pulses intact and symmetrical Normal gait and station, No calf tenderness Psychiatric: Alert and oriented to person, place and time, Appropriate affect Intact judgement Neuro: Muscles Strength 5/5 in all 4 extremities, Sensation to light touch grossly present throughout, Cranial nerves II-XII grossly intact. No focal sensory deficits - Labs CBC & Chem 7: 10/06/17 07:54 10/06/17 07:54 Labs: Abnormal Lab Results - Last 24 Hours (Table) 10/05/17 10/05/17 10/05/17 Range/Units 20:26 20:26 20:40 RBC 3.70 L (4.30-5.90) m/uL Hgb 11.7 L (13.0-17.5) gm/dL Hct 33.8 L (39.0-53.0) % Plt Count 137 L (150-450) k/uL Lymphocytes # 0.8 L (1.0-4.8) k/uL BUN 35 H (9-20) mg/dL Creatinine 2.20 H (0.66-1.25) mg/dL Glucose 114 H (74-99) mg/dL AST 78 H (17-59) U/L ALT 75 H (21-72) U/L Urine Protein Trace H (Negative) 10/06/17 10/06/17 Range/Units 07:54 07:54 RBC 3.77 L (4.30-5.90) m/uL Hgb 11.6 L (13.0-17.5) gm/dL Hct 35.4 L (39.0-53.0) % Plt Count (150-450) k/uL Lymphocytes # (1.0-4.8) k/uL BUN 30 H (9-20) mg/dL Creatinine 1.79 H (0.66-1.25) mg/dL Glucose (74-99) mg/dL AST 89 H (17-59) U/L ALT 92 H (21-72) U/L Urine Protein (Negative) Microbiology - Last 24 Hours (Table) 10/05/17 20:40 Urine Culture - Preliminary Urine,Voided Assessment and Plan (1) Acute encephalopathy Narrative/Plan: * Appreciate neurology recommendations patient scheduled to have MRI of the head * Secondary to possible infection versus confusion response to narcotics hydrocodone for pain versus TIA/stroke * Echocardiogram showing normal ejection fraction of 55-60% Current Visit: Yes Status: Resolved Code(s): G93.40 - ENCEPHALOPATHY, UNSPECIFIED SNOMED Code(s): 77306892 (2) Fever Narrative/Plan: * Continues to have intermittent fevers, influenza was negative * Has been complaining of intermittent abdominal pain will order CT abdomen and pelvis and consult ID Dr. Stephen for further recommendations * Blood cultures are pending, urinalysis and chest x-ray negative for any suggestion of infection * Patient is a history of gallbladder removal and sometimes gets recurrent gallstones Current Visit: Yes Status: Acute Code(s): R50.9 - FEVER, UNSPECIFIED SNOMED Code(s): 545691072 (3) Multiple falls Current Visit: Yes Status: Acute Code(s): R29.6 - REPEATED FALLS SNOMED Code(s): 993615048 (4) TIA (transient ischemic attack) Current Visit: Yes Status: Acute Code(s): G45.9 - TRANSIENT CEREBRAL ISCHEMIC ATTACK, UNSPECIFIED SNOMED Code(s): 203946622 (5) Syncope Narrative/Plan: * Possibly neurogenic * Check orthostatic vital signs, 2-D echocardiogram consistent with ejection fraction of 55-60% Current Visit: Yes Status: Acute Code(s): R55 - SYNCOPE AND COLLAPSE SNOMED Code(s): 433975748
--- NOTE | 2017-10-06 14:03 | P.CRDCN ---
History of Present Illness Consult date: 10/06/17 History of present illness: Mr. Aguillon is a pleasant 82-year-old male past medical history significant for gastroesophageal reflux disease, chronic kidney disease and hypertension. He sees Dr. Gaffney in the office. We have been asked to see him in consultation for evidence of left bundle branch block. Over the previous couple of days he has been feeling increasingly fatigued with generalized weakness. He had also been having some fevers at home. He denies symptoms of chest pain, shortness of breath, palpitations, nausea or vomiting. He does have episodes of dizziness intermittently and has fallen multiple times over the last week with symptoms of confusion as well. He states he fell prior to arrival after standing from the toilet and trying to walk back to bed. He felt weak and fell forward onto to upper body. He has been receiving antibiotics since admission. EKG reveals left bundle branch block with first-degree AV block evident and left axis deviation. Chest x-ray is negative for an acute cardiopulmonary process. Laboratory data reviewed, hemoglobin 11.6, platelets 155, potassium 4.1, magnesium 1.9, creatinine 1.79, cardiac enzymes negative 2, TSH 3.1. No evidence of urinary tract infection. Current cardiac medications include Lasix 20 mg daily, Aldactone 25 mg daily and amlodipine 10 mg daily. Most recent echocardiogram performed in the office reveals normal ejection fraction with mild MR. Review of Systems At the time of my exam: CONSTITUTIONAL: Denies fever. Denies chills. EYES: Denies blurred vision. Denies vision changes. Denies eye pain. EARS, NOSE, MOUTH & THROAT: Denies headache. Denies sore throat. Denies ear pain. CARDIOVASCULAR: Denies chest pain. Denies shortness of breath. Denies orthopnea. Denies PND. Denies palpitations. RESPIRATORY: Denies cough. GASTROINTESTINAL: Denies abdominal pain. Denies diarrhea. Denies constipation. Denies nausea. Denies vomiting. MUSCULOSKELETAL: Denies myalgias. INTEGUMENTARY: Denies pruitis. Denies rash. NEUROLOGIC: Denies numbness. Denies tingling. Complains of generalized weakness and fatigue. PSYCHIATRIC: Denies anxiety. Denies depression. ENDOCRINE: Denies fatigue. Denies weight change. Denies polydipsia. Denies polyurina. GENITOURINARY: Denies burning, hematuria or urgency with micturation. HEMATOLOGIC: Denies history of anemia. Denies bleeding. 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, TINNITUS History of Any Multi-Drug Resistant Organisms: None Reported Past Surgical History: Cholecystectomy, Orthopedic Surgery Additional Past Surgical History / Comment(s): LTRI & CTR RT WRIST, ARTHROSCOPIC ROMA KNEES, RT TOE SURGERY, REMOVAL OF CANCER RT SIDE OF NOSE, EGD, COLONOSCOPY; PAIN PROCEDURES Past Anesthesia/Blood Transfusion Reactions: No Reported Reaction Past Psychological History: No Psychological Hx Reported Smoking Status: Never smoker Past Alcohol Use History: None Reported Past Drug Use History: None Reported - Past Family History Mother Family Medical History: CVA/TIA, Hyperlipidemia Additional Family Medical History / Comment(s): HEART PROBLEMS- FROM A STROKE Medications and Allergies Home Medications Medication Instructions Recorded Confirmed Type Glucosamine-Chondroitin Triple 1 tab PO DAILY 01/29/15 10/05/17 History Strength Silodosin [Rapaflo] 8 mg PO HS 01/29/15 10/05/17 History Spironolactone [Aldactone] 25 mg PO DAILY 01/30/15 10/05/17 History Furosemide [Lasix] 20 mg PO DAILY 09/30/15 10/05/17 History Ondansetron Odt [Zofran ODT] 4 mg PO Q8HR PRN #10 tab 10/01/17 10/05/17 Rx Calcium Lactate 84 mg PO DAILY 10/05/17 10/05/17 History Donepezil [Aricept] 10 mg PO HS 10/05/17 10/05/17 History Vitamin E 1,000 unit PO DAILY 10/05/17 10/05/17 History amLODIPine [Norvasc] 10 mg PO DAILY 10/05/17 10/05/17 History Allergies Allergy/AdvReac Type Severity Reaction Status Date / Time allopurinol Allergy RED RASH Verified 10/05/17 20:39 TO BLE Physical Exam Vitals: Vital Signs Temp Pulse Pulse Resp BP BP Pulse Ox 10/06/17 07:00 98.9 F 71 16 116/57 96 10/06/17 03:48 98.6 F 10/06/17 02:51 100 F H 10/06/17 00:41 98.3 F 95 18 134/69 96 10/06/17 00:09 98.7 F 80 18 135/77 97 10/06/17 00:00 18 10/05/17 22:29 97.8 F 70 18 139/77 97 10/05/17 21:02 64 18 125/70 97 10/05/17 20:14 79 18 137/74 97 10/05/17 19:58 99.2 F 74 18 121/58 97 Intake and Output 10/05/17 10/06/17 10/06/17 22:59 06:59 14:59 Other: Voiding Method Toilet # Voids 3 Weight 84.822 kg 84.822 kg Blood pressure 116/57 heart rate 71 afebrile this morning, 100F overnight 3 AM. GENERAL: This is a 82-year-old male in no apparent distress at the time of my examination. HEENT: Head is atraumatic, normocephalic. Pupils are equal, round. Sclerae anicteric. Conjunctivae are clear. Mucous membranes of the mouth are moist. Neck is supple. There is no jugular venous distention. No carotid bruit is heard. LUNGS: Clear to auscultation no wheezes, rales or rhonchi. No chest wall tenderness is noted on palpation or with deep breathing. HEART: Regular rate and rhythm with systolic ejection murmur, no rubs or gallops. S1 and S2 heard. ABDOMEN: Soft, nontender. Bowel sounds are heard. No organomegaly noted. EXTREMITIES: No evidence of peripheral edema and no calf tenderness noted. VASCULAR: Radial and dorsalis pedis pulses palpated, no evidence of clubbing. NEUROLOGIC: Patient is awake, alert and oriented x3. Results 10/06/17 07:54 10/06/17 07:54 Cardiac Enzymes 10/05/17 10/05/17 10/06/17 Range/Units 20:26 20:26 07:54 AST 78 H 89 H (17-59) U/L Lactate Dehydrogenase 531 (313-618) U/L Troponin I 0.014 (0.000-0.034) ng/mL 10/06/17 Range/Units 08:17 AST (17-59) U/L Lactate Dehydrogenase (313-618) U/L Troponin I 0.031 (0.000-0.034) ng/mL Lipids 10/06/17 Range/Units 07:54 Triglycerides 70 (<150) mg/dL Cholesterol 134 (<200) mg/dL HDL Cholesterol 51 (40-60) mg/dL CBC 10/05/17 10/06/17 Range/Units 20:26 07:54 WBC 5.7 6.2 (3.8-10.6) k/uL RBC 3.70 L 3.77 L (4.30-5.90) m/uL Hgb 11.7 L 11.6 L (13.0-17.5) gm/dL Hct 33.8 L 35.4 L (39.0-53.0) % Plt Count 137 L 155 (150-450) k/uL Comprehensive Metabolic Panel 10/05/17 10/06/17 Range/Units 20:26 07:54 Sodium 139 140 (137-145) mmol/L Potassium 4.2 4.1 (3.5-5.1) mmol/L Chloride 103 104 (98-107) mmol/L Carbon Dioxide 22 23 (22-30) mmol/L BUN 35 H 30 H (9-20) mg/dL Creatinine 2.20 H 1.79 H (0.66-1.25) mg/dL Glucose 114 H 99 (74-99) mg/dL Calcium 9.6 9.2 (8.4-10.2) mg/dL AST 78 H 89 H (17-59) U/L ALT 75 H 92 H (21-72) U/L Alkaline Phosphatase 108 107 (38-126) U/L Total Protein 6.7 6.5 (6.3-8.2) g/dL Albumin 3.8 3.7 (3.5-5.0) g/dL Current Medications Generic Name Dose Route Start Last Admin Trade Name Freq PRN Reason Stop Dose Admin Acetaminophen 650 mg 10/05/17 22:58 10/06/17 02:50 Tylenol Tab PO 650 mg Q6HR PRN Administration Mild Pain or Fever > 100.5 Amlodipine Besylate 10 mg 10/06/17 09:00 10/06/17 09:20 Norvasc PO 10 mg DAILY DAVID Administration Aspirin 81 mg 10/06/17 09:00 10/06/17 09:20 Aspirin PO 81 mg DAILY DAVID Administration Atorvastatin Calcium 20 mg 10/06/17 21:00 Lipitor PO HS DAVID Calcium Carbonate/Glycine 500 mg 10/06/17 12:00 Tums PO DAILY@1200 DAVID Naloxone HCl 0.2 mg 10/05/17 22:58 Narcan IV Q2M PRN Opioid Reversal Ondansetron HCl 4 mg 10/05/17 22:58 Zofran IVP Q8HR PRN Nausea And Vomiting Tamsulosin HCl 0.4 mg 10/06/17 08:30 10/06/17 09:20 Flomax PO 0.4 mg [id number] DAVID Administration Intake and Output 10/05/17 10/06/17 10/06/17 22:59 06:59 14:59 Other: Voiding Method Toilet # Voids 3 Weight 84.822 kg 84.822 kg 10/06/17 07:54 10/06/17 07:54 Assessment and Plan Assessment: ASSESSMENT 1. Febrile illness of unknown etiology with confusion and dizziness. 2. Left bundle branch block, no acute intervention recommended. 3. Hypertension, controlled. 4. Chronic kidney disease, stage 3B PLAN Echocardiogram obtained will be reviewed. Continue ongoing medical management of febrile illness. No aggressive cardiac intervention required. Left bundle branch block may be normal variant secondary to advanced age. Thank you kindly for this consultation. Follow up with Dr. Gaffney in 2 weeks after discharge. Nurse Practitioner note has been reviewed, I agree with a documented findings and plan of care. Patient was seen and examined.
--- NOTE | 2017-10-06 14:28 | US ---
EXAMINATION TYPE: US carotid duplex BILAT DATE OF EXAM: 10/06/2017 COMPARISON: NO US CLINICAL HISTORY: tia. Patient stated had near syncopal episode x 2 EXAM MEASUREMENTS: RIGHT: Peak Systolic Velocity (PSV) cm/sec ----- Right CCA: 80.7 ----- Right ICA: 84.6 ----- Right ECA: 71.3 ICA/CCA ratio: 1.0 RIGHT: End Diastole cm/sec ----- Right CCA: 16.8 ----- Right ICA: 16.8 ----- Right ECA: 10.4 LEFT: Peak Systolic Velocity (PSV) cm/sec ----- Left CCA: 68.6 ----- Left ICA: 70.2 ----- Left ECA: 66.0 ICA/CCA ratio: 1.0 LEFT: End Diastole cm/sec ----- Left CCA: 18.4 ----- Left ICA: 23.0 ----- Left ECA: 5.2 VERTEBRALS (direction of flow): Right Vertebral: Antegrade Left Vertebral: Antegrade Rhythm: Arrhythmia Grayscale images show no significant focal plaque at carotid bulb level bilaterally. Velocity measure ments and ratios are within normal limits. Technologist notes arrhythmia during real-time scanning wh ich is reproduced on few of the waveform saved IMPRESSION: No hemodynamically significant stenosis is seen in either internal carotid artery. Possib le underlying arrhythmia, if this is not known finding further investigation with cardiac monitoring is advised.
[2017-10-06] MEDS: CALCIUM CARBONATE 500 MG CHEWABLE PO SCH (14:43)
--- NOTE | 2017-10-06 14:45 | CT ---
EXAMINATION TYPE: CT abdomen pelvis wo con DATE OF EXAM: 10/06/2017 HISTORY: Abdominal pain, stomach area, recent fall onto stomach CT DLP: 1026 mGycm. Automated Exposure Control for Dose Reduction was Utilized. TECHNIQUE: CT scan of the abdomen and pelvis is performed without oral or IV contrast. COMPARISON: CT abdomen pelvis December 16, 2012. FINDINGS: Within the limitations of a non-contrast study, the following observations are made. LUNG BASES: Posterior dependent linear atelectasis and/or scarring is present. LIVER/GB: Cholecystectomy clips are present. Central pneumobilia is noted on current study. PANCREAS: No significant abnormality is seen. SPLEEN: No significant abnormality is seen. ADRENALS: No significant abnormality is seen. KIDNEYS: There are large simple appearing cysts redemonstrated throughout both kidneys. Few scattered pelvic phleboliths are seen. BOWEL: There are some diverticula in the sigmoid colon. There is no CT evidence for acute diverticuli tis. There is no suspicious small or large bowel dilatation. Debris filled stomach suggest recent ying l ingestion. GENITAL ORGANS: Prostate gland is enlarged bulging on bladder base, underlying BPH is suspected. LYMPH NODES: No greater than 1cm abdominal or pelvic lymph nodes are appreciated. OSSEOUS STRUCTURES: There is grade 1 anterolisthesis of L3 on L4 and L4 on L5. There is mild height l oss or chronic compression fracture L3 level superior endplate. There is moderate to advanced disc sp luther narrowing with vacuum disc phenomenon L5-S1 level. There is slight underlying levoconvex scoliosi s in the lumbar spine. There is facet arthropathy lower lumbar levels. There is spinal canal stenosis L4-L5 level on axial image 51 and L3-L4 level on axial image 47 due to facet arthropathy and disc he rniation/spondylolisthesis. OTHER: There is mild calcified aftereffect change of aorta extending into branch vessels. IMPRESSION: 1. No suspicious posttraumatic finding identified on noncontrast study. 2. Pneumobilia seen on current study may be product of cholecystectomy, other etiologies are not excl uded. 3. Large but simple appearing renal cysts bilaterally are redemonstrated.
[2017-10-06] MEDS: cefTRIAXone IN SWFI 1,000 MG/10 ML SYRINGE IVP SCH (14:50)
--- NOTE | 2017-10-06 15:07 | MR ---
EXAMINATION TYPE: MR brain wo con DATE OF EXAM: 10/06/2017 COMPARISON: CT brain from yesterday. HISTORY: TIA per order. Admitted for fever and falls with headache yesterday. TECHNIQUE: Multiplanar, multisequence imaging of the brain and brainstem is performed without IV cont rast. FINDINGS: Diffusion weighted images demonstrate no evidence of a recent infarct or other diffusion abnormality. There is no worrisome extra-axial fluid collection. There is ventricular and sulcal prominence consis tent with diffuse cerebral atrophy. There are focal and confluent areas of T2 hyperintensity seen thr oughout the superficial, deep, and periventricular white matter. Lesions are nonspecific in appearanc e and distribution but most likely on basis of product of chronic small vessel ischemic change in pat ient this age. Midline structures demonstrate normal morphology. The craniocervical junction appears within normal limits. Normal vascular flow voids are present. Incidental dominant left vertebral artery noted. Ther e is mild mucosal thickening involving ethmoid sinuses bilaterally. Remainder paranasal sinuses are c lear. The globes are intact bilaterally. IMPRESSION: 1. No evidence of a recent infarct. 2. There is background of mild to moderate diffuse cerebral atrophy and moderate to advanced chronic small vessel ischemic change noted.
[2017-10-06] MEDS: ATORVASTATIN 20 MG TAB PO SCH (20:20)
--- NOTE | 2017-10-06 21:40 | CONS ---
CONSULTATION DATE OF SERVICE: 10/06/2017. REASON FOR CONSULTATION: Fever. HISTORY OF PRESENT ILLNESS: The patient is an 82-year-old male who has been brought into the ER at [facility] 10/05/2017 for fever with rigors and chills. His symptoms have been going on for about a few days prior to presentation to hospital and apparently did have 2 falls at home, but no loss of consciousness or any focal weakness. The patient still having fever with rigors and chills for which she took some Tylenol. Did not have significant improvement. The patient denies significant URI symptoms of sore throat. Denies having any chest pain. Very minimal cough, not bringing up any sputum. No shortness of breath. Has been complaining of some vague left lower abdominal pain that has been going on for the last few days and worse after the fall. Pain is mostly on the left side. For 3 days, more of a dull aching pain, 3-4 out of 10 and no radiation. [place] nauseated but no vomiting. Denies having any diarrhea or constipation associated with it. Since then the patient did have extensive workup including a chest x-ray that was reported to be negative. Head and cervical spine CT was negative as well. X-rays of the hip no fracture. The patient did receive 1 dose of Rocephin in the ER and did have a fever of 100 early this morning. Hence, I was asked to see the patient for further recommendation regarding antibiotic therapy. The patient did have influenza serology that was negative and UA has been negative. The patient denies having any burning or frequency of urine. Liver enzymes are mildly elevated. The patient did have a history of cholecystectomy. However, the did mention that he has risk of cholesterol stones and did have ERCP done by Dr. Walters. REVIEW OF SYSTEMS: Constitutional: Positive for weakness along with rigors and chills. Eyes no complaint. ENT no complaint. Respiratory as per HPI. Cardiovascular: No complaint. Genitourinary no complaint. Chest: As per HPI. Musculoskeletal: No complaint. Integument no complaint. Psychological no complaint. Endocrine no complaint. Neurological as per HPI. PAST MEDICAL HISTORY: Significant for CVA, TIA, gastroesophageal reflux disease, osteoarthritis, rheumatoid arthritis, benign prostatic hypertrophy, melanoma. PAST SURGICAL HISTORY: Cholecystectomy, arthroscopy bilateral knee, right toe surgery, melanoma resection of the right side of the nose, colonoscopy. SOCIAL HISTORY: No history of smoking, drinking, or drug use. FAMILY HISTORY: Mother with history of CVA and TIA. ALLERGIES: TO ALLOPURINOL. MEDICATIONS: The patient is currently on Tylenol, Norvasc, aspirin, Lipitor, Tums, Narcan, Zofran, Flomax. EXAMINATION: Blood pressure is 122/70 with a pulse of 72, temperature 98.7. T-max 100. He is 96% on room air. General description is an elderly male lying in bed in no distress. No tachypnea or accessory muscles of respiration use. HEENT: Shows slight pallor. No scleral icterus. Oral mucous membranes dry. No erythema or thrush. Neck: Trachea central. No thyromegaly. Lungs unlabored breathing. Clear to auscultation. No wheeze or crackles. Heart S1, S2. Regular rate and rhythm. No murmur. ABDOMEN: Soft. Very minimal tenderness on the left side, but no guarding. No rigidity. No organomegaly. EXTREMITIES: No edema of the feet. Skin examination: No rash or mass palpable. Neurological: Patient is awake, alert, oriented times three. Mood and affect normal. LABS: Hemoglobin 11.3, white count 6.2 with a BUN of 30, creatinine 1.79. Did have a creatinine 1.93 on 10/01/2017. The patient urine is negative. Serology is negative. Liver enzymes slightly elevated. Urine culture so far pending. Blood culture obtained currently pending. DIAGNOSTIC IMPRESSION AND PLAN: Patient in the hospital with multiple falls. The patient noted to have rigors and chills, source is likely abdominal. The patient did have some vague abdominal pain and did have elevated liver enzymes with question of possible ascending cholangitis to be the likely etiology. Clinically no other focus of infection. His urine has been negative. Chest x-ray was reported negative. The patient did have any respiratory symptoms. No evidence of any cellulitis or joint swelling. PLAN: 1. Await CT abdominal pelvis with oral contrast has been done by the admitting team. 2. Will start the patient on Rocephin 1 g IV piggyback daily. 3. Depending upon his clinical response as well as culture, we will adjust the medication further if needed. Thank you for this consultation. Will follow this patient along with you. MMODL / IJN: [id number] / MARTHA
[2017-10-07] MEDS: amLODIPine 10 MG TAB PO SCH (08:59)
[2017-10-07] MEDS: TAMSULOSIN 0.4 MG CAP.ER.24H PO SCH (08:59)
[2017-10-07] MEDS: ASPIRIN 81 MG PO SCH (08:59)
[2017-10-07] MEDS: cefTRIAXone IN SWFI 1,000 MG/10 ML SYRINGE IVP SCH (08:59)
--- NOTE | 2017-10-07 12:33 | P.PN ---
Subjective Progress Note Date: 10/07/17 Patient is awake and alert, conversive responding appropriately to questions. and daughter at bedside. Patient afebrile. Otherwise no acute events. Objective - Vital Signs Vital signs: Vital Signs Temp 98.7 F 10/07/17 07:00 Pulse 72 10/07/17 07:00 Resp 16 10/07/17 07:00 BP 125/61 10/07/17 07:00 Pulse Ox 95 10/07/17 07:00 Intake & Output 10/06/17 10/07/17 10/07/17 18:59 06:59 18:59 Intake Total 1660 1050 Output Total 700 Balance 1660 350 Weight 84.822 kg 84.822 kg Intake: Intake, IV Titration 700 1050 Amount Sodium Chloride 0.9% 1, 450 1050 000 ml @ 75 mls/hr IV . [id number] [facility] Rx#:[id number] Vancomycin 1,500 mg In 250 Sodium Chloride 0.9% 250 ml @ 125 mls/hr IVPB Q48H [facility] Rx#:[id number] Oral 960 Output: Urine 700 Other: Voiding Method Toilet Toilet Urinal # Voids 5 1 # Bowel Movements 2 - Exam Constitutional: No acute distress, conversant, pleasant Eyes: Anicteric sclerae, moist conjunctiva, no lid-lag, PERRLA ENMT: NC/AT,Oropharynx clear, no erythema, exudates Neck:Supple, FROM, no masses, or JVD, No carotid bruits; No thyromegaly Lungs: Clear to auscultation, Clear to percussion, Normal respiratory effort, no accessory muscle use Cardiovascular: Heart regular in rate and rhythm, No murmurs, gallops, or rubs no peripheral edema Abdominal: Soft Nontender, nom distended, no guarding, no rebound or rigidity, Normoactive bowel sounds No hepatomegaly, No splenomegaly, No palpable mass No abdominal wall hernia noted Skin: Normal temperature, tone, texture, turgor, No induration No subcutaneous nodules, No rash, lesions, No ulcers Extremities:No digital cyanosis No clubbing, Pedal pulses intact and symmetrical Radial pulses intact and symmetrical Normal gait and station, No calf tenderness Psychiatric: Alert and oriented to person, place and time, Appropriate affect Intact judgement Neuro: Muscles Strength 5/5 in all 4 extremities, Sensation to light touch grossly present throughout, Cranial nerves II-XII grossly intact. No focal sensory deficits - Labs CBC & Chem 7: 10/06/17 07:54 10/06/17 07:54 Labs: Microbiology - Last 24 Hours (Table) 10/05/17 20:40 Urine Culture - Final Urine,Voided 10/05/17 20:26 Blood Culture - Preliminary Blood No Growth after 24 hours Assessment and Plan (1) Acute encephalopathy Narrative/Plan: * Appreciate neurology recommendations patient scheduled to have MRI of the head * Secondary to possible infection versus confusion response to narcotics hydrocodone for pain versus TIA/stroke * Echocardiogram showing normal ejection fraction of 55-60% Current Visit: Yes Status: Resolved Code(s): G93.40 - ENCEPHALOPATHY, UNSPECIFIED SNOMED Code(s): 28926428 (2) Fever Narrative/Plan: * Continues to have intermittent fevers, influenza was negative * Has been complaining of intermittent abdominal pain, CT Abd pelvis negative for acute infectious process consult ID Dr. Stephen for further recommendations * Blood cultures NG X 24 hrs , urine Culture negative and chest x-ray negative for any suggestion of infection * Patient is a history of gallbladder removal and sometimes gets recurrent gallstones Current Visit: Yes Status: Resolved Code(s): R50.9 - FEVER, UNSPECIFIED SNOMED Code(s): 373935614 (3) Multiple falls Current Visit: Yes Status: Acute Code(s): R29.6 - REPEATED FALLS SNOMED Code(s): 922993736 (4) TIA (transient ischemic attack) Current Visit: Yes Status: Acute Code(s): G45.9 - TRANSIENT CEREBRAL ISCHEMIC ATTACK, UNSPECIFIED SNOMED Code(s): 633630042 (5) Syncope Narrative/Plan: * negative orthostatic vital sign, 2-D echocardiogram consistent with ejection fraction of 55-60% * MRI indicates no recent infarct Current Visit: Yes Status: Acute Code(s): R55 - SYNCOPE AND COLLAPSE SNOMED Code(s): 281149354 Plan: The patient has been afebrile, can likely be discharged at 48 hours of negative blood cultures, no underlying infectious etiology found at this time. Awaiting further input from ID
[2017-10-07] MEDS: CALCIUM CARBONATE 500 MG CHEWABLE PO SCH (12:58)
[2017-10-07] MEDS: ATORVASTATIN 20 MG TAB PO SCH (19:59)
--- NOTE | 2017-10-07 22:41 | PN ---
PROGRESS NOTE DATE OF SERVICE: 10/07/2017 REASON FOR FOLLOWUP: Fever and a question of cholangitis. INTERVAL HISTORY: The patient's overall fever pattern has improved. He has been breathing comfortably. Denies having any chest pain. No nausea, no vomiting. No abdominal pain or any diarrhea. EXAMINATION: Blood pressure 106/60 with a pulse of 73, temperature of 98.2. He is 97% on room air. General description is an elderly male lying in bed in no distress. RESPIRATORY SYSTEM: Unlabored breathing. Clear to auscultation anteriorly. HEART: S1, S2. Regular rate and rhythm. ABDOMEN: Soft. No tenderness EXTREMITIES: No edema of the feet. LABS: Hemoglobin 11.2, white count 6.2 with a BUN of 30, creatinine 1.79. Electrolytes have been normal. Cultures so far negative. DIAGNOSTIC IMPRESSION AND PLAN: Patient with a fever with rigors and chills with concern for possible cholangitis. The patient did have a history of recurrent cholesterol stone and did have slightly elevated liver enzymes. Blood cultures have been negative so far. However, the patient's fever responded to the Rocephin. That will be continued. Family present at bedside. Their questions were answered. MMODL / IJN: [id number] /
--- NOTE | 2017-10-07 23:20 | P.PN ---
Subjective Progress Note Date: 10/07/17 This patient is a 82-year-old male being evaluated for recent symptoms of sepsis and chills and rigors. He was also having multiple falls at home and was admitted to Hospital. The patient underwent MRI of the brain yesterday which revealed no acute stroke or infarct. There is moderate degree of diffuse cerebral atrophy and chronic small vessel ischemic changes. No evidence to suggest multiple strokes as a cause of early dementia. He was taken off of Aricept. Patient was sent for computed tomography scan of the abdomen to further evaluate for abdominal pain and possible cholangitis. Workup is still in progress. He does have evidence of left bundle branch block with no acute intervention recommended at this time. Neurologically he seems to show improvement with his mental status today. He is to follow-up with his forest ecologist for further assessment of his left bundle branch block. We will continue close neurological follow-up for the patient. Case was discussed at length with the patient's who was bedside. She is aware of our recommendations and agrees with our current treatment plan. Objective - Vital Signs Vital signs: Vital Signs Temp 98.2 F 10/07/17 15:00 Pulse 76 10/07/17 15:00 Resp 16 10/07/17 15:00 BP 106/60 10/07/17 15:00 Pulse Ox 97 10/07/17 15:00 Intake & Output 10/07/17 10/07/17 10/08/17 06:59 18:59 06:59 Intake Total 1050 840 Output Total 700 1 Balance 350 839 Weight 84.822 kg Intake: Intake, IV Titration 1050 Amount Sodium Chloride 0.9% 1, 1050 000 ml @ 75 mls/hr IV . [id number] [facility] Rx#:[id number] Oral 840 Output: Urine 700 Stool 1 Other: Voiding Method Toilet Toilet Urinal Urinal # Voids 1 4 - Exam Physical examination: PHYSICAL EXAMINATION: Patient is resting comfortably in bed. VITAL SIGNS: Blood pressure is [106/60]. Heart rate is [77]. Respiration is [16] . Temperature is [98.2]. HEENT: Head is atraumatic, neck is supple, there were no carotid bruits. CHEST: Lungs are clear to auscultation and percussion. CARDIAC: S1, S2 normal rate and rhythm. There is no murmur. ABDOMEN: Soft and nontender. Bowel sounds are present. EXTREMITIES: There is no pedal edema. Peripheral pulses are present. Neurological examination: Patient has a nonfocal neurological examination today. There is clearing of his overall cognitive function as compared to yesterday. - Labs CBC & Chem 7: 10/06/17 07:54 10/06/17 07:54 Labs: Microbiology - Last 24 Hours (Table) 10/05/17 20:26 Blood Culture - Preliminary Blood No Growth after 48 hours 10/05/17 20:40 Urine Culture - Final Urine,Voided Assessment and Plan (1) TIA (transient ischemic attack) Current Visit: Yes Status: Acute Code(s): G45.9 - TRANSIENT CEREBRAL ISCHEMIC ATTACK, UNSPECIFIED SNOMED Code(s): 153049575 (2) Acute encephalopathy Current Visit: Yes Status: Resolved Code(s): G93.40 - ENCEPHALOPATHY, UNSPECIFIED SNOMED Code(s): 55084041 (3) Sepsis Current Visit: Yes Status: Acute Code(s): A41.9 - SEPSIS, UNSPECIFIED ORGANISM SNOMED Code(s): 48339219 (4) Multiple falls Current Visit: Yes Status: Acute Code(s): R29.6 - REPEATED FALLS SNOMED Code(s): 558401969 Plan: This patient is a 82-year-old male being evaluated for recent falls and altered mental status. And went MRI of the brain yesterday which failed to reveal any evidence of acute stroke. He underwent a carotid Doppler ultrasound which reveals no significant carotid artery stenosis. Cardiology is following the patient for history of left bundle branch block. He is undergone computed tomography scan of the head and cervical spine both of which have been negative. He is being evaluated for abdominal pain and computed tomography scan of the abdomen was completed. We will continue close neurological follow- up for the patient during this admission. His overall prognosis at this time remains guarded.
[2017-10-08 07:46] VITALS: BP 125/60; PULSE 70; RESP 18; TEMP 98.4
[2017-10-08] MEDS: TAMSULOSIN 0.4 MG CAP.ER.24H PO SCH (08:07)
[2017-10-08] MEDS: ASPIRIN 81 MG PO SCH (08:07)
[2017-10-08] MEDS: amLODIPine 10 MG TAB PO SCH (08:07)
[2017-10-08] MEDS: cefTRIAXone IN SWFI 1,000 MG/10 ML SYRINGE IVP SCH (08:10)
[2017-10-08 12:21] LABS: Basophils % (A) 0 %; Eosinophils # (A) 0.1 k/uL (0-0.7); Eosinophils % (A) 2 %; HCT 32.7 % (39.0-53.0); HGB 11.1 gm/dL (13.0-17.5); Lymphocytes # (A) 1.3 k/uL (1.0-4.8); Lymphocytes % (A) 20 %; MCH 31.5 pg (25.0-35.0); MCHC 33.9 g/dL (31.0-37.0); MCV 92.9 fL (80.0-100.0); Mean Platelet Volume 6.6; Monocytes # (A) 0.5 k/uL (0-1.0); Monocytes % (A) 7 %; Neutrophils # (A) 4.2 k/uL (1.3-7.7); Neutrophils % (A) 67 %; Platelet Count 187 k/uL (150-450); RBC 3.52 m/uL (4.30-5.90); WBC 6.3 k/uL (3.8-10.6)
[2017-10-08] MEDS: CALCIUM CARBONATE 500 MG CHEWABLE PO SCH (12:27)
[2017-10-08 12:32] LABS: Albumin 3.4 g/dL (3.5-5.0); Calcium 9.3 mg/dL (8.4-10.2); Potassium 4.6 mmol/L (3.5-5.1); Total Bilirubin 0.4 mg/dL (0.2-1.3); Total Protein 6.3 g/dL (6.3-8.2)
--- NOTE | 2017-10-08 12:58 | P.DS ---
Providers Date of admission: 10/05/17 22:59 Expected date of discharge: 10/08/17 Attending physician: Maria Ines Mccord MD Consults: 10/06/17 00:41 Consult Physician Routine Consulting Provider: Anabela Christian Consult Reason/Comments: TIA Do you want consulting provider notified?: Yes, Notify in am 10/06/17 00:51 Consult Physician Routine Consulting Provider: Sb Ha Consult Reason/Comments: FALLS, EKG showing LBBB Do you want consulting provider notified?: Yes, Notify in am 10/06/17 13:22 Consult Physician Routine Consulting Provider: Julieta Stephen Consult Reason/Comments: intermittent fever Do you want consulting provider notified?: Yes Primary care physician: Silke Calle - Discharge Diagnosis(es) (1) Acute encephalopathy Current Visit: Yes Status: Resolved (2) Fever Current Visit: Yes Status: Resolved (3) Multiple falls Current Visit: Yes Status: Acute (4) TIA (transient ischemic attack) Current Visit: Yes Status: Acute (5) Syncope Current Visit: Yes Status: Acute Hospital Course: The patient is a [age]-year-old male that presented with intermittent confusion and intermittent fevers and was admitted for acute encephalopathy and concern for impending sepsis due to his intermittent fevers. He had a computed tomography scan of his head that showed no acute intracranial of normality, subsequent MRI showed no evidence of recent infarct. The patient was seen by neurology Dr. Christian This was possibly an TIA, declined carotid Dopplers showed never no evidence of carotid artery stenosis. Patient is also seen by infectious disease Zafar, for his intermittent fevers and was started on Rocephin, it was thought that the patient given his history of recurrent gallstones and history of lap cholecystectomy was having a mild ascending cholangitis, and she presented with mildly elevated transaminases, subsequent CT abdomen and pelvis was negative for any suggestion of any intra-abdominal pathology causing his fevers. While hospitalized patient was noted to have a single febrile episode, he had blood cultures that were negative 48 hours, a urine culture with no growth and a chest and hip x-ray that showed no acute process. The patient was subsequently cleared for discharge to be sent home on Ceftin 500 mg by mouth twice a day for 10 days with plans to follow-up with Dr. Walters at the request of Dr. Pressley. Cardiology had been consulted for left bundle branch block which which they thought was a normal variant due to the patient's advanced age, but recommended that the patient have a Holter monitor and to follow up with them in clinic. The patient was subsequent discharged home in stable condition told to follow up with his PCP, Dr. Walters in 1 week and cardiology. This discharge process took approximately 35 minutes Patient Condition at Discharge: Stable Plan - Discharge Summary Discharge Rx Participant: Yes New Discharge Prescriptions: New Cefuroxime Axetil [Ceftin] 500 mg PO BID #20 tab Continue Glucosamine-Chondroitin Triple Strength 1 tab PO DAILY Silodosin [Rapaflo] 8 mg PO HS Spironolactone [Aldactone] 25 mg PO DAILY Furosemide [Lasix] 20 mg PO DAILY Ondansetron Odt [Zofran ODT] 4 mg PO Q8HR PRN #10 tab PRN Reason: Nausea Vitamin E 1,000 unit PO DAILY Donepezil [Aricept] 10 mg PO HS amLODIPine [Norvasc] 10 mg PO DAILY Calcium Lactate 84 mg PO DAILY Discharge Medication List Glucosamine-Chondroitin Triple Strength 1 tab PO DAILY 01/29/15 [History] Silodosin [Rapaflo] 8 mg PO HS 01/29/15 [History] Spironolactone [Aldactone] 25 mg PO DAILY 01/30/15 [History] Furosemide [Lasix] 20 mg PO DAILY 09/30/15 [History] Ondansetron Odt [Zofran ODT] 4 mg PO Q8HR PRN #10 tab 10/01/17 [Rx] Calcium Lactate 84 mg PO DAILY 10/05/17 [History] Donepezil [Aricept] 10 mg PO HS 10/05/17 [History] Vitamin E 1,000 unit PO DAILY 10/05/17 [History] amLODIPine [Norvasc] 10 mg PO DAILY 10/05/17 [History] Cefuroxime Axetil [Ceftin] 500 mg PO BID #20 tab 10/08/17 [Rx] Follow up Appointment(s)/Referral(s): Sylvia Gaffney MD [STAFF PHYSICIAN] - 10/20/17 10:15 am Silke Calle MD [Primary Care Provider] - 1-2 days
--- NOTE | 2017-10-13 07:57 | CDI ---
Last Revision, June 2017 Documentation Clarification Form Date: 10/13/17 From: Humaira Taveras Phone: If you have a question regarding this query, please contact Delores Ramos at [phone] between 8am and 5pm Admit Date: 10/05/2017 10:59:00 PM Patient Name: Alli Aguillon Visit Number: [id number] Discharge Date: 10/08/17 ATTENTION: The Clinical Documentation Specialists (CDI) and [facility] Coding Staff appreciate your assistance in clarifying documentation. Please respond to the clarification below the line at the bottom and electronically sign. The CDI & [facility] Coding staff will review the response and follow-up if needed. Please note: Queries are made part of the Legal Health Record. If you have any questions, please contact the author of this message via ITS. Dr. Arcadio Jones Acute encephalopathy is documented in the discharge summary, your 10/06 - 10/07 progress notes, Dr. Christian's consult note and his 10/07 progress notes. History/Risk factors: Fever and possible TIA. Clinical Indicators: syncope and fever CT/MRI Brain: 10/05 No acute intracranial hermorrhage, mass effect, or midline shift is seen. 10/06 1. No evidence of a recent infarct. 2. There is background of mild to moderate diffuse cerebral atrophy and moderate to advanced chronic small vessel ischemic change noted. In your professional opinion, can you please clarify the specific type of encephalopathy, if known? Unable to determine, you might want to contact Dr. Christian to further characterize . MARTHA
--- NOTE | 2017-10-24 13:33 | CDI ---
Last Revision, June 2017 Documentation Clarification Form Date: 10/24/17 From: Humaira Taveras Phone: If you have a question regarding this query, please contact Delores Ramos at [phone] between 8am and 5pm. Admit Date: 10/05/2017 10:59:00 PM Patient Name: Alli Aguillon Visit Number: [id number] Discharge Date: 10/08/17 ATTENTION: The Clinical Documentation Specialists (CDI) and [facility] Coding Staff appreciate your assistance in clarifying documentation. Please respond to the clarification below the line at the bottom and electronically sign. The CDI & [facility] Coding staff will review the response and follow-up if needed. Please note: Queries are made part of the Legal Health Record. If you have any questions, please contact the author of this message via ITS. Dr. Anabela Christian Acute encephalopathy is documented in the discharge summary, your 10/06 - 10/07 progress notes, Dr. Christian's consult note and his 10/07 progress notes. History/Risk factors: Fever and possible TIA. Clinical Indicators: syncope and fever CT/MRI Brain: 10/05 No acute intracranial hermorrhage, mass effect, or midline shift is seen. 10/06 1. No evidence of a recent infarct. 2. There is background of mild to moderate diffuse cerebral atrophy and moderate to advanced chronic small vessel ischemic change noted. In your professional opinion, can you please clarify the specific type of encephalopathy, if known? Hypertensive Encephalopathy Metabolic Encephalopathy Toxic Encephalopathy Traumatic Encephalopathy Hepatic Encephalopathy, if indicated, please clarify: Indicate if any complications: Coma, other disease process? Causal Condition: Alcoholism, Hepatitis, other disease process? Other, please specify Unable to determine This was a metabolic encephalopathy. MTDD
== END 2017-10-08 13:45 | disposition home or self-care (01) | DRG 69 ==
LOC: EC 19:54 → 5MS5E 22:59
PROVIDERS: ADMIT Internal Medicine; ATTEND Internal Medicine
DX: G45.9 Transient cerebral ischemic attack, unspecified (principal); G93.41 Metabolic encephalopathy; D63.1 Anemia in chronic kidney disease; I44.7 Left bundle-branch block, unspecified; M06.9 Rheumatoid arthritis, unspecified; E78.5 Hyperlipidemia, unspecified; I12.9 Hypertensive chronic kidney disease with stage 1 through stage 4 chronic kidney disease, or unspecified chronic kidney disease; R50.9 Fever, unspecified; I44.0 Atrioventricular block, first degree; K21.9 Gastro-esophageal reflux disease without esophagitis; N18.3 Chronic kidney disease, stage 3 (moderate); N40.0 Benign prostatic hyperplasia without lower urinary tract symptoms; R29.6 Repeated falls; M19.90 Unspecified osteoarthritis, unspecified site; R10.32 Left lower quadrant pain; R74.0 Nonspecific elevation of levels of transaminase and lactic acid dehydrogenase [LDH]; Z79.899 Other long term (current) drug therapy; Z88.8 Allergy status to other drugs, medicaments and biological substances; Z90.49 Acquired absence of other specified parts of digestive tract; Z86.73 Personal history of transient ischemic attack (TIA), and cerebral infarction without residual deficits; Z85.820 Personal history of malignant melanoma of skin; Z82.3 Family history of stroke; W18.30XA Fall on same level, unspecified, initial encounter; Y92.009 Unspecified place in unspecified non-institutional (private) residence as the place of occurrence of the external cause
CPT/HCPCS: 36415; 70450; 70551; 71046; 72125; 73502; 74176; 80053; 80061; 81003; 83010; 83036; 83605; 83615; 83690; 83735; 84443; 84484; 85025; 85045; 87040; 87086; 87502; 93005; 93306; 93880; 96361; 96365; 96375; 99285

== ENCOUNTER → 2017-11-03 | Day surgery (SDC) | payer MEDICARE ==
[2017-11-02 09:27] VITALS: BMI 25.0
[~2017-11-03] MED LIST changes: +INDOMETHACIN 50MG SUPPOSITORY RECTAL ONE; +IOPAMIDOL-370 50ML BTL MISCELLANE ONE; +LACTATED RINGERS 1,000 ML IV ONE; +LEVOFLOXACIN 500MG-D5W PMX 500 MG in DEXTROSE/WATER 1 100ML.BAG IVPB ONE; +LIDOCAINE 1% 20 ML VIAL (10MG/ML) FOR IV START INTRADERMA ONE; -LIDOCAINE 1% 20 ML VIAL (10MG/ML) FOR IV START INTRADERMA PRN; +PROPOFOL 10 MG/ML 20 ML VIAL IV ONE
[2017-11-03 13:15] VITALS: RESP 16; TEMP 98
[2017-11-03 13:26] LABS: HCT 38.4 % (39.0-53.0); HGB 12.6 gm/dL (13.0-17.5); MCH 30.6 pg (25.0-35.0); MCHC 32.8 g/dL (31.0-37.0); MCV 93.2 fL (80.0-100.0); Mean Platelet Volume 6.9; Platelet Count 185 k/uL (150-450); RBC 4.12 m/uL (4.30-5.90); RDW 12.8 % (11.5-15.5)
[2017-11-03 13:33] LABS: Albumin 4.5 g/dL (3.5-5.0); Calcium 10.3 mg/dL (8.4-10.2); Partial Thromboplastin Time 23.9 sec (22.0-30.0); Potassium 4.2 mmol/L (3.5-5.1); Prothrombin Time 10.1 sec (9.0-12.0); Total Bilirubin 0.7 mg/dL (0.2-1.3); Total Protein 7.7 g/dL (6.3-8.2)
--- NOTE | 2017-11-03 15:11 | P.PCN ---
Date of Procedure: 11/03/17 Procedure(s) Performed: Brief history: Patient is a year-old pleasant lady scheduled for an ERCP as part of evaluation of abdominal pain and elevated liver enzymes. He was recently admitted hospital 3 weeks ago with fever right upper quadrant abdominal pain and was also noted to have mild elevation of LFTs. He was treated with antibiotics for possible ascending cholangitis and this symptoms improved and was discharged home. Because of prior history of recurrent CBD stones he scheduled for an ERCP today. Procedure performed: ERCP with balloon extraction Preoperative diagnoses: Elevated LFTs, right upper quadrant abdominal pain, recent episode of possible ascending cholangitis IV sedation per anesthesia: Procedure: After informed consent was obtained from the patient and after the risks benefits and complications including bleeding perforation and pancreatitis explained in detail the patient was brought into the endoscopy unit. The patient was placed in prone position and IV conscious sedation was administered by anesthesia under continuous monitoring. The Olympus side-viewing duodenoscope was then inserted into the mouth and esophagus intubated without any difficulty. The scope was gradually advanced into the stomach and duodenum with severe difficulty.. The major papilla was identified and upon cannulation of the common bile duct it appeared slightly dilated measuring 1 cm in diameter and no obvious filling defects were identified. At this time I passed an 11 mm balloon into the proximal CBD, gently inflated and withdrawn and did not see any stones exiting the ampulla. Occlusion cholangiolar was performed with no filling defects seen. The maneuver was repeated 4 times area to patient tolerated the procedure well. Impression: Dilated common bile duct with no filling defects status post balloon extraction and no stones seen exiting the ampulla. Pancreatic duct intentionally not cannulated. Recommendations: The findings of this examination were discussed with the patient as well as a family. He was advised to follow up in the office in 3-4 weeks.
--- NOTE | 2017-11-03 15:20 | FL ---
Fluoroscopy History: ERCP CBD DILATION CBD DIALATION. FLUORO TIME [address] TOLBERT. 1 IMAGE SCANNED
[2017-11-03 15:29] VITALS: PULSE 71
[2017-11-03 15:38] VITALS: BP 101/66
== END ==
LOC: ORWHC2ENDO 11:40
PROVIDERS: ATTEND Internal Medicine Gastroenterology
DX: K83.8 Other specified diseases of biliary tract (principal); K21.9 Gastro-esophageal reflux disease without esophagitis; N40.0 Benign prostatic hyperplasia without lower urinary tract symptoms; N28.9 Disorder of kidney and ureter, unspecified; I10 Essential (primary) hypertension; Z86.73 Personal history of transient ischemic attack (TIA), and cerebral infarction without residual deficits; G89.29 Other chronic pain; M54.9 Dorsalgia, unspecified; Z79.811 Long term (current) use of aromatase inhibitors; Z79.899 Other long term (current) drug therapy; Z88.8 Allergy status to other drugs, medicaments and biological substances
CPT/HCPCS: 80053; 85027; 85610; 85730; 74328; 43260; J1956; J2704; Q9967